=== PATIENT | female | born 1940 | race Caucasian/White ===

== ENCOUNTER 2019-07-28 15:25 | Inpatient (IN) | payer MEDICARE, OTHER ==
[~2019-07-28] VITALS: Ht 157.5 cm; Wt 87.8 kg
--- NOTE | 2019-07-28 15:52 | NUR ---
Xray awaiting Ct C spine results
[2019-07-28] MEDS ORDERED: SODIUM CHLORIDE 0.9% 1,000ML IVBOLUS ONE ×2 (16:00→18:30)
[2019-07-28] MEDS ORDERED: SODIUM CHLORIDE FLUSH 10ML SYR IVF ONE (16:00)
--- NOTE | 2019-07-28 16:20 | NUR ---
ORAL SURGERY PHYSICIAN: PTS GRANDSONGWENDOLYN PH: [phone] STATES HIS GRANDMOTHER LIVES ALONE AND HE WAS CONTACTED BY A NEIGHBOR. HE STATED THAT HE WOULD BE IN LATER AND ALSO THAT HIS SISTER IS TRYING TO LEAVE WORK TO COME IN. THEY ARE BOTH IN [place]
[2019-07-28 16:44] LABS: ALBUMIN 3.8 g/dL (3.4-5.0); ANION GAP 13 mmol/L (5-15); CALCIUM 9.4 mg/dL (8.5-10.1); CHLORIDE 101 mmol/L (98-107)
[2019-07-28 16:50] LABS: BASOPHILS # (AUTO) 0.02 x10^3/uL (0-0.1); BASOPHILS % (AUTO) 0 % (0-1); EOSINOPHILS # (AUTO) 0.08 x10^3/uL (0-0.4); EOSINOPHILS % (AUTO) 1 % (1-7); LYMPHOCYTES # (AUTO) 0.93 x10^3/uL (1-3.4); LYMPHOCYTES % (AUTO) 10 % (22-44); MD NO; MEAN CORPUSCULAR HGB CONC 33.5 g/dL (32.4-35.8); MEAN CORPUSCULAR VOLUME 92.8 fL (80-100); MEAN PLATELET VOLUME 9.1 fL (7.4-10.4); MONOCYTES # (AUTO) 0.64 x10^3/uL (0.2-0.8); MONOCYTES % (AUTO) 7 % (2-9); NEUTROPHILS # (AUTO) 7.75 x10^3/uL (1.8-6.8); NEUTROPHILS % (AUTO) 82 % (42-75); PLATELET COUNT 287 x10^3/uL (130-400); RED BLOOD COUNT 5.61 x10^6/uL (3.82-5.3); RED CELL DISTRIBUTION WIDTH 14.9 % (9.6-15.2)
[2019-07-28 16:52] LABS: ALANINE AMINOTRANSFERASE 66 U/L (12-78); ALKALINE PHOSPHATASE 83 U/L (45-117); CREATINE KINASE, TOTAL 729 U/L (26-192); TOTAL PROTEIN 8.3 g/dL (6.4-8.2); TROPONIN I 0.026 ng/mL (0.000-0.045)
[2019-07-28 16:55] LABS: CULTURE INDICATED? YES; MICROSCOPIC INDICATED
--- NOTE | 2019-07-28 17:02 | NUR ---
PT LAYING ON GURNEY AWAKE & COMFORTABLE, WATCHING TV, NAD, RESPONDS APPROP TO STAFF, PUREWICK IN PLACE FOR COMFORT, NO OTHER NEEDS AT THIS TIME, CALL LIGHT WITHIN REACH.
--- NOTE | 2019-07-28 17:45 | NUR ---
PT TO XR
[2019-07-28] MEDS ORDERED: METFORMIN (17:50)
[2019-07-28] MEDS ORDERED: VALIUM (17:50)
[2019-07-28] MEDS ORDERED: COUMADIN (17:50)
[2019-07-28] MEDS ORDERED: CEFTRIAXONE PMX 1GM/50ML 50 ML IV ONE (18:00)
[2019-07-28] MEDS ORDERED: POTASSIUM CHLORIDE 10% 40 MEQ/30 ML UDC PO ONE (18:00)
[2019-07-28] MEDS ORDERED: CEFTRIAXONE PMX 1GM/50ML 50 ML ONE (18:16)
--- NOTE | 2019-07-28 18:20 | NUR ---
PT RETURNED FROM XR
[2019-07-28] MEDS ORDERED: CEFTRIAXONE PMX 1GM/50ML 50 ML IV SCH (19:00)
[2019-07-28] MEDS ORDERED: ACETAMINOPHEN 325 MG TABLET PO PRN (19:00)
[2019-07-28] MEDS ORDERED: BISACODYL 10 MG SUPP PR PRN (19:00)
[2019-07-28] MEDS ORDERED: POLYETHYLENE GLYCOL 17 GM PACKET PO PRN (19:00)
[2019-07-28] MEDS ORDERED: ONDANSETRON ODT 4 MG PO PRN (19:00)
--- NOTE | 2019-07-28 19:02 | NUR ---
REPORT GIVEN TO TADEO
[2019-07-28 19:22] LABS: INTERNATIONAL NORMALIZED RATIO 3.12 (0.93-1.1); PROTHROMBIN TIME 33.5 Seconds (9.6-11.5)
--- NOTE | 2019-07-28 19:43 | NUR ---
PT RESTING ON GURNEY, IV FLUIDS INFUSING, MONITORS IN PLACE, SIDERAILS UP X2, CALL LIGHT WITHIN REACH. AWAITING ROOM FOR ADMIT
--- NOTE | 2019-07-28 19:50 | NUR ---
NOTED PT'S HR- 115-140'S, ADMIT MD NOTIFIED AND WILL PLACE ORDER
--- NOTE | 2019-07-28 20:26 | NUR ---
ADMIT ( KENNETH), CALLED AND UPDATED PT'S HR-113-120'S, ORDER RECEIVED TO HAVE FLOOR RN CALL MD HERNANDEZ PT ARRIVES TO FLOOR
--- NOTE | 2019-07-28 20:31 | NUR ---
CARRIE RN CALLED AND UNABLE TO COME TO PHONE AT THIS TIME, DIOGENES INFORMED THAT NO IV GTT'S TO BE STARTED AT THIS TIME AND ADMIT (KENNETH) WANTS TO BE CALLED WHEN PT ARRIVES TO FLOOR. DIOGENES STATED SHE WILL NOTIFY CARRIE
[2019-07-28 20:48] VITALS: BP 123/77
[2019-07-28] MEDS: DILTIAZEM 125 MG in SODIUM CHLORIDE 0.9% 100 ML IV SCH (22:09)
[2019-07-28] MEDS: HEPARIN 5,000 UNITS/ML, 1ML SQ SCH (22:10)
[2019-07-28] MEDS: NS + 20MEQ KCL 1,000 ML IV SCH (22:10)
[2019-07-28] MEDS ORDERED: LEVO100V8 PO (23:41)
[2019-07-28] MEDS ORDERED: LEVO100T PO (23:42)
[2019-07-29 00:09] VITALS: BP 128/82
[2019-07-29] MEDS: HEPARIN 5,000 UNITS/ML, 1ML SQ SCH ×3 (05:37→21:44)
[2019-07-29 06:04] LABS: BASOPHILS # (AUTO) 0.03 x10^3/uL (0-0.1); BASOPHILS % (AUTO) 1 % (0-1); EOSINOPHILS # (AUTO) 0.24 x10^3/uL (0-0.4); EOSINOPHILS % (AUTO) 4 % (1-7); LYMPHOCYTES % (AUTO) 12 % (22-44); MD NO; MEAN CORPUSCULAR HEMOGLOBIN 30.7 pg (27.0-34.8); MEAN CORPUSCULAR VOLUME 92.9 fL (80-100); MEAN PLATELET VOLUME 8.9 fL (7.4-10.4); MONOCYTES # (AUTO) 0.51 x10^3/uL (0.2-0.8); MONOCYTES % (AUTO) 8 % (2-9); NEUTROPHILS # (AUTO) 5.14 x10^3/uL (1.8-6.8); NEUTROPHILS % (AUTO) 76 % (42-75); PLATELET COUNT 244 x10^3/uL (130-400); RED BLOOD COUNT 4.93 x10^6/uL (3.82-5.3); RED CELL DISTRIBUTION WIDTH 15.1 % (9.6-15.2)
[2019-07-29 06:16] LABS: ANION GAP 10 mmol/L (5-15); CALCIUM 8.1 mg/dL (8.5-10.1); CHLORIDE 112 mmol/L (98-107)
[2019-07-29 06:22] LABS: CREATINE KINASE, TOTAL 286 U/L (26-192); CREATININE 0.92 mg/dL (0.55-1.02); TROPONIN I 0.045 ng/mL (0.000-0.045)
[2019-07-29 08:00] VITALS: BP 134/85
[2019-07-29] MEDS: NS + 20MEQ KCL 1,000 ML IV SCH ×2 (08:53→21:44)
[2019-07-29] MEDS: SENNA/DOCUSATE TABLET PO SCH (08:53)
[2019-07-29 14:00] VITALS: BP 129/85
[2019-07-29] MEDS ORDERED: VANCOMYCIN PER PHARMACY MC PRN (17:00)
[2019-07-29] MEDS ORDERED: POTASSIUM CHLORIDE 20 MEQ TAB.ER.PRT PO ONE (17:00)
[2019-07-29] MEDS ORDERED: VANCOMYCIN PMX 1GM/200ML 200 ML IV ONE (17:00)
[2019-07-29] MEDS ORDERED: PHARMACOKINETIC MONITORING MC PRN (17:30)
[2019-07-29 19:19] VITALS: BP 129/73
[2019-07-29] MEDS: AMPICILLIN/SULBACTAM 3 GM in SODIUM CHLORIDE 0.9% 100 ML IV SCH (19:42)
[2019-07-29] MEDS: DILTIAZEM 125 MG in SODIUM CHLORIDE 0.9% 100 ML IV SCH (19:43)
[2019-07-29] MEDS: VANCOMYCIN 1,300 MG in SODIUM CHLORIDE 0.9% 250 ML IV SCH (21:44)
[2019-07-30 01:13] VITALS: BP 128/88
[2019-07-30] MEDS: AMPICILLIN/SULBACTAM 3 GM in SODIUM CHLORIDE 0.9% 100 ML IV SCH ×3 (02:02→16:30)
[2019-07-30] MEDS ORDERED: HALOPERIDOL 5 MG/ML IM ONE (03:00)
[2019-07-30 03:51] LABS: BASOPHILS # (AUTO) 0.05 x10^3/uL (0-0.1); BASOPHILS % (AUTO) 1 % (0-1); EOSINOPHILS # (AUTO) 0.32 x10^3/uL (0-0.4); EOSINOPHILS % (AUTO) 5 % (1-7); LYMPHOCYTES % (AUTO) 11 % (22-44); MD NO; MEAN CORPUSCULAR HEMOGLOBIN 30.7 pg (27.0-34.8); MEAN CORPUSCULAR HGB CONC 32.6 g/dL (32.4-35.8); MEAN CORPUSCULAR VOLUME 94.2 fL (80-100); MEAN PLATELET VOLUME 8.7 fL (7.4-10.4); MONOCYTES # (AUTO) 0.47 x10^3/uL (0.2-0.8); MONOCYTES % (AUTO) 7 % (2-9); NEUTROPHILS # (AUTO) 5.38 x10^3/uL (1.8-6.8); NEUTROPHILS % (AUTO) 77 % (42-75); PLATELET COUNT 243 x10^3/uL (130-400); RED BLOOD COUNT 4.75 x10^6/uL (3.82-5.3); RED CELL DISTRIBUTION WIDTH 15.1 % (9.6-15.2)
[2019-07-30 04:02] LABS: ALANINE AMINOTRANSFERASE 45 U/L (12-78); ALBUMIN 2.8 g/dL (3.4-5.0); ANION GAP 8 mmol/L (5-15); CHLORIDE 112 mmol/L (98-107); CREATININE 1.05 mg/dL (0.55-1.02)
[2019-07-30 04:04] LABS: ALKALINE PHOSPHATASE 56 U/L (45-117); BILIRUBIN,TOTAL 0.9 mg/dL (0.2-1.0); TOTAL PROTEIN 6.3 g/dL (6.4-8.2)
[2019-07-30] MEDS: HEPARIN 5,000 UNITS/ML, 1ML SQ SCH ×2 (05:21→15:18)
[2019-07-30] MEDS: SENNA/DOCUSATE TABLET PO SCH (08:04)
[2019-07-30 08:37] VITALS: BP 132/89
[2019-07-30] MEDS: DILTIAZEM 125 MG in SODIUM CHLORIDE 0.9% 100 ML IV SCH (10:18)
[2019-07-30 13:48] VITALS: BP 122/71
[2019-07-30] MEDS: NS + 20MEQ KCL 1,000 ML IV SCH (16:30)
[2019-07-30] MEDS: DILTIAZEM 60 MG TABLET PO SCH (18:42)
[2019-07-30] MEDS ORDERED: MAGNESIUM SULFATE PMX 2GM/50ML 50 ML IV ONE (19:00)
[2019-07-30 19:03] VITALS: BP 152/79
[2019-07-30 19:03] LABS: INTERNATIONAL NORMALIZED RATIO 1.51 (0.93-1.1); PROTHROMBIN TIME 16.1 Seconds (9.6-11.5)
[2019-07-30] MEDS ORDERED: HOLD COUMADIN MC PRN (19:30)
[2019-07-30] MEDS: VANCOMYCIN 1,300 MG in SODIUM CHLORIDE 0.9% 250 ML IV SCH (21:56)
[2019-07-30] MEDS ORDERED: DILTIAZEM 5 MG/ML, 5ML IVPush ONE (22:00)
[2019-07-30] MEDS ORDERED: LORazepam 2 MG/ML, 1ML IVPush PRN (22:00)
[2019-07-30] MEDS ORDERED: LORazepam 2 MG/ML, 1ML IVPush ONE (23:00)
[2019-07-31] MEDS: DILTIAZEM 60 MG TABLET PO SCH ×5 (00:45→23:20)
[2019-07-31 00:54] VITALS: BP 148/82
[2019-07-31] MEDS ORDERED: ZIPRASIDONE 20 MG INJ IM ONE (01:00)
[2019-07-31 05:40] LABS: BASOPHILS # (AUTO) 0.02 x10^3/uL (0-0.1); BASOPHILS % (AUTO) 0 % (0-1); EOSINOPHILS # (AUTO) 0.35 x10^3/uL (0-0.4); EOSINOPHILS % (AUTO) 5 % (1-7); LYMPHOCYTES % (AUTO) 14 % (22-44); MD NO; MEAN CORPUSCULAR HEMOGLOBIN 31.2 pg (27.0-34.8); MEAN CORPUSCULAR HGB CONC 33.1 g/dL (32.4-35.8); MEAN CORPUSCULAR VOLUME 94.4 fL (80-100); MEAN PLATELET VOLUME 8.4 fL (7.4-10.4); MONOCYTES # (AUTO) 0.68 x10^3/uL (0.2-0.8); MONOCYTES % (AUTO) 9 % (2-9); NEUTROPHILS # (AUTO) 5.24 x10^3/uL (1.8-6.8); NEUTROPHILS % (AUTO) 72 % (42-75); PLATELET COUNT 238 x10^3/uL (130-400); RED BLOOD COUNT 5.16 x10^6/uL (3.82-5.3); RED CELL DISTRIBUTION WIDTH 15.4 % (9.6-15.2)
[2019-07-31 05:53] LABS: INTERNATIONAL NORMALIZED RATIO 1.4 (0.93-1.1); PROTHROMBIN TIME 14.9 Seconds (9.6-11.5)
[2019-07-31 05:54] LABS: ANION GAP 8 mmol/L (5-15); CALCIUM 8.9 mg/dL (8.5-10.1); CHLORIDE 109 mmol/L (98-107)
[2019-07-31 05:58] LABS: CREATININE 0.78 mg/dL (0.55-1.02)
[2019-07-31 06:40] VITALS: BP 161/90
[2019-07-31] MEDS: SENNA/DOCUSATE TABLET PO SCH ×2 (09:00→11:55)
[2019-07-31] MEDS: MAGNESIUM OXIDE 400 MG TABLET PO SCH ×2 (09:00→11:55)
[2019-07-31 09:46] VITALS: BP 130/84
[2019-07-31] MEDS: AMPICILLIN/SULBACTAM 3 GM in SODIUM CHLORIDE 0.9% 100 ML IV SCH ×3 (11:00→23:20)
[2019-07-31 12:15] VITALS: BP 132/84
[2019-07-31] MEDS ORDERED: WARFARIN 5 MG TABLET PO-COUM ONE (18:00)
[2019-07-31 20:29] VITALS: BP 130/80
[2019-07-31] MEDS: VANCOMYCIN 1,300 MG in SODIUM CHLORIDE 0.9% 250 ML IV SCH (21:30)
[2019-07-31] MEDS: QUETIAPINE 25MG TABLET PO SCH (22:02)
[2019-08-01 02:28] VITALS: BP 143/81
[2019-08-01 05:47] LABS: BASOPHILS # (AUTO) 0.02 x10^3/uL (0-0.1); BASOPHILS % (AUTO) 0 % (0-1); EOSINOPHILS # (AUTO) 0.34 x10^3/uL (0-0.4); EOSINOPHILS % (AUTO) 5 % (1-7); LYMPHOCYTES # (AUTO) 1.27 x10^3/uL (1-3.4); LYMPHOCYTES % (AUTO) 18 % (22-44); MD NO; MEAN CORPUSCULAR HEMOGLOBIN 31.2 pg (27.0-34.8); MEAN CORPUSCULAR HGB CONC 33.2 g/dL (32.4-35.8); MEAN PLATELET VOLUME 8.9 fL (7.4-10.4); MONOCYTES # (AUTO) 0.64 x10^3/uL (0.2-0.8); MONOCYTES % (AUTO) 9 % (2-9); NEUTROPHILS # (AUTO) 4.84 x10^3/uL (1.8-6.8); NEUTROPHILS % (AUTO) 68 % (42-75); PLATELET COUNT 226 x10^3/uL (130-400); RED BLOOD COUNT 4.94 x10^6/uL (3.82-5.3); RED CELL DISTRIBUTION WIDTH 15.1 % (9.6-15.2)
[2019-08-01] MEDS: AMPICILLIN/SULBACTAM 3 GM in SODIUM CHLORIDE 0.9% 100 ML IV SCH (05:55)
[2019-08-01] MEDS: DILTIAZEM 60 MG TABLET PO SCH ×5 (05:56→17:55)
[2019-08-01 05:59] LABS: ANION GAP 6 mmol/L (5-15); CALCIUM 8.4 mg/dL (8.5-10.1); CHLORIDE 108 mmol/L (98-107)
[2019-08-01 06:26] LABS: INTERNATIONAL NORMALIZED RATIO 1.25 (0.93-1.1); PROTHROMBIN TIME 13.3 Seconds (9.6-11.5)
[2019-08-01] MEDS: MAGNESIUM OXIDE 400 MG TABLET PO SCH ×2 (09:00→12:35)
[2019-08-01] MEDS: SENNA/DOCUSATE TABLET PO SCH ×2 (09:00→12:35)
[2019-08-01 09:06] VITALS: BP 150/87
[2019-08-01] MEDS ORDERED: POTASSIUM CHLORIDE 40 MEQ in SODIUM CHLORIDE 0.9% 500 ML IV ONE (11:00)
[2019-08-01] MEDS: LEVOFLOXACIN/PMX 750MG/150ML 150 ML IV SCH (11:21)
--- NOTE | 2019-08-01 12:14 | NUR ---
REC: Home; regular diet with chopped meat and thin liquids Addendum: 08/01/19 at 1214 by Leonie JAEGER Amended: Links added.
[2019-08-01 12:34] VITALS: BP 104/71
[2019-08-01] MEDS ORDERED: WARFARIN 3 MG TABLET PO-COUM ONE (18:00)
[2019-08-01 18:14] VITALS: BP 112/80
[2019-08-01] MEDS: METOPROLOL TARTRATE 25 MG TAB PO SCH (18:23)
[2019-08-01 21:13] VITALS: BP 126/88
[2019-08-01] MEDS: QUETIAPINE 25MG TABLET PO SCH (21:13)
[2019-08-01] MEDS: VANCOMYCIN 1,300 MG in SODIUM CHLORIDE 0.9% 250 ML IV SCH (21:13)
[2019-08-02 01:42] VITALS: BP 141/85
[2019-08-02] MEDS: DILTIAZEM 60 MG TABLET PO SCH ×4 (01:43→20:14)
[2019-08-02 05:45] LABS: BASOPHILS # (AUTO) 0.02 x10^3/uL (0-0.1); BASOPHILS % (AUTO) 0 % (0-1); EOSINOPHILS % (AUTO) 5 % (1-7); LYMPHOCYTES # (AUTO) 1.23 x10^3/uL (1-3.4); LYMPHOCYTES % (AUTO) 16 % (22-44); MD NO; MEAN CORPUSCULAR HEMOGLOBIN 30.9 pg (27.0-34.8); MEAN CORPUSCULAR HGB CONC 32.9 g/dL (32.4-35.8); MEAN CORPUSCULAR VOLUME 93.8 fL (80-100); MEAN PLATELET VOLUME 9.2 fL (7.4-10.4); MONOCYTES # (AUTO) 0.68 x10^3/uL (0.2-0.8); MONOCYTES % (AUTO) 9 % (2-9); NEUTROPHILS # (AUTO) 5.45 x10^3/uL (1.8-6.8); NEUTROPHILS % (AUTO) 70 % (42-75); PLATELET COUNT 227 x10^3/uL (130-400); RED CELL DISTRIBUTION WIDTH 15.2 % (9.6-15.2)
[2019-08-02 05:52] LABS: INTERNATIONAL NORMALIZED RATIO 1.57 (0.93-1.1); PROTHROMBIN TIME 16.7 Seconds (9.6-11.5)
[2019-08-02 05:55] LABS: ANION GAP 8 mmol/L (5-15); CALCIUM 8.4 mg/dL (8.5-10.1); CHLORIDE 107 mmol/L (98-107)
[2019-08-02] MEDS: METOPROLOL TARTRATE 25 MG TAB PO SCH ×2 (06:00→17:19)
[2019-08-02 06:02] VITALS: BP 144/93
[2019-08-02] MEDS: MAGNESIUM OXIDE 400 MG TABLET PO SCH (08:51)
[2019-08-02] MEDS: SENNA/DOCUSATE TABLET PO SCH (08:51)
[2019-08-02] MEDS: LEVOFLOXACIN/PMX 750MG/150ML 150 ML IV SCH (11:01)
[2019-08-02 13:18] VITALS: BP 104/71
[2019-08-02] MEDS ORDERED: WARFARIN 5 MG TABLET PO-COUM ONE (18:00)
[2019-08-02 19:12] VITALS: BP 129/73
[2019-08-02] MEDS: QUETIAPINE 25MG TABLET PO SCH (20:09)
[2019-08-02 20:13] VITALS: BP 113/80
[2019-08-02] MEDS: DOXYCYCLINE 100MG CAP PO SCH (20:14)
[2019-08-03 00:46] VITALS: BP 136/79
[2019-08-03] MEDS: DILTIAZEM 60 MG TABLET PO SCH ×4 (03:00→19:56)
[2019-08-03 04:41] LABS: BASOPHILS # (AUTO) 0.06 x10^3/uL (0-0.1); BASOPHILS % (AUTO) 1 % (0-1); EOSINOPHILS # (AUTO) 0.36 x10^3/uL (0-0.4); EOSINOPHILS % (AUTO) 4 % (1-7); LYMPHOCYTES # (AUTO) 1.22 x10^3/uL (1-3.4); LYMPHOCYTES % (AUTO) 14 % (22-44); MD NO; MEAN CORPUSCULAR HGB CONC 33.1 g/dL (32.4-35.8); MEAN CORPUSCULAR VOLUME 93.7 fL (80-100); MONOCYTES # (AUTO) 0.61 x10^3/uL (0.2-0.8); MONOCYTES % (AUTO) 7 % (2-9); NEUTROPHILS # (AUTO) 6.22 x10^3/uL (1.8-6.8); NEUTROPHILS % (AUTO) 73 % (42-75); PLATELET COUNT 233 x10^3/uL (130-400); RED BLOOD COUNT 4.81 x10^6/uL (3.82-5.3); RED CELL DISTRIBUTION WIDTH 15.4 % (9.6-15.2)
[2019-08-03 04:52] LABS: ANION GAP 8 mmol/L (5-15); CALCIUM 8.3 mg/dL (8.5-10.1); CHLORIDE 107 mmol/L (98-107); CREATININE 1.28 mg/dL (0.55-1.02)
[2019-08-03 06:05] VITALS: BP 136/80
[2019-08-03] MEDS: METOPROLOL TARTRATE 25 MG TAB PO SCH ×2 (06:06→17:40)
[2019-08-03 06:08] VITALS: BP 136/82
[2019-08-03] MEDS: SENNA/DOCUSATE TABLET PO SCH (08:36)
[2019-08-03] MEDS: DOXYCYCLINE 100MG CAP PO SCH ×2 (08:36→19:56)
[2019-08-03 09:48] LABS: INTERNATIONAL NORMALIZED RATIO 1.44 (0.93-1.1); PROTHROMBIN TIME 15.3 Seconds (9.6-11.5)
[2019-08-03] MEDS: MAGNESIUM OXIDE 400 MG TABLET PO SCH (11:10)
[2019-08-03 14:10] VITALS: BP 159/82
[2019-08-03] MEDS ORDERED: WARFARIN 7.5 MG TABLET PO-COUM ONE (18:00)
[2019-08-03 18:53] VITALS: BP 186/94
[2019-08-03] MEDS: QUETIAPINE 25MG TABLET PO SCH (19:56)
[2019-08-03 20:00] VITALS: BP 169/71
[2019-08-04] VITALS (9 sets, daily range): BP systolic 103–150; BP diastolic 63–89
[2019-08-04] MEDS: DILTIAZEM 60 MG TABLET PO SCH ×4 (03:10→20:57)
[2019-08-04 05:55] LABS: BASOPHILS # (AUTO) 0.03 x10^3/uL (0-0.1); BASOPHILS % (AUTO) 1 % (0-1); EOSINOPHILS % (AUTO) 6 % (1-7); LYMPHOCYTES # (AUTO) 1.02 x10^3/uL (1-3.4); LYMPHOCYTES % (AUTO) 15 % (22-44); MD NO; MEAN CORPUSCULAR VOLUME 94.1 fL (80-100); MEAN PLATELET VOLUME 9.1 fL (7.4-10.4); MONOCYTES # (AUTO) 0.71 x10^3/uL (0.2-0.8); MONOCYTES % (AUTO) 10 % (2-9); NEUTROPHILS # (AUTO) 4.69 x10^3/uL (1.8-6.8); NEUTROPHILS % (AUTO) 68 % (42-75); PLATELET COUNT 224 x10^3/uL (130-400); RED BLOOD COUNT 4.82 x10^6/uL (3.82-5.3); RED CELL DISTRIBUTION WIDTH 15.5 % (9.6-15.2)
[2019-08-04 05:57] LABS: INTERNATIONAL NORMALIZED RATIO 1.83 (0.93-1.1); PROTHROMBIN TIME 19.5 Seconds (9.6-11.5)
[2019-08-04] MEDS: METOPROLOL TARTRATE 25 MG TAB PO SCH ×2 (06:00→17:25)
[2019-08-04 06:03] LABS: ANION GAP 8 mmol/L (5-15); CALCIUM 8.6 mg/dL (8.5-10.1); CHLORIDE 107 mmol/L (98-107); CREATININE 0.94 mg/dL (0.55-1.02)
[2019-08-04] MEDS: DOXYCYCLINE 100MG CAP PO SCH ×2 (09:23→20:57)
[2019-08-04] MEDS: SENNA/DOCUSATE TABLET PO SCH (09:23)
[2019-08-04] MEDS: MAGNESIUM OXIDE 400 MG TABLET PO SCH (11:07)
[2019-08-04] MEDS ORDERED: SODIUM CHLORIDE 0.9%, 500ML IVBOLUS ONE (12:30)
[2019-08-04] MEDS ORDERED: WARFARIN 7.5 MG TABLET PO-COUM ONE (18:00)
[2019-08-04] MEDS: QUETIAPINE 25MG TABLET PO SCH (20:57)
[2019-08-05] VITALS (10 sets, daily range): BP systolic 78–135; BP diastolic 51–92
[2019-08-05] MEDS: DILTIAZEM 60 MG TABLET PO SCH ×4 (03:08→21:15)
[2019-08-05 05:02] LABS: BASOPHILS # (AUTO) 0.04 x10^3/uL (0-0.1); BASOPHILS % (AUTO) 1 % (0-1); EOSINOPHILS # (AUTO) 0.48 x10^3/uL (0-0.4); EOSINOPHILS % (AUTO) 6 % (1-7); LYMPHOCYTES # (AUTO) 1.31 x10^3/uL (1-3.4); LYMPHOCYTES % (AUTO) 17 % (22-44); MD NO; MEAN CORPUSCULAR HEMOGLOBIN 30.9 pg (27.0-34.8); MEAN CORPUSCULAR HGB CONC 32.5 g/dL (32.4-35.8); MEAN CORPUSCULAR VOLUME 95.1 fL (80-100); MEAN PLATELET VOLUME 9.2 fL (7.4-10.4); MONOCYTES # (AUTO) 0.84 x10^3/uL (0.2-0.8); MONOCYTES % (AUTO) 11 % (2-9); NEUTROPHILS # (AUTO) 4.94 x10^3/uL (1.8-6.8); NEUTROPHILS % (AUTO) 65 % (42-75); PLATELET COUNT 211 x10^3/uL (130-400); RED BLOOD COUNT 4.59 x10^6/uL (3.82-5.3); RED CELL DISTRIBUTION WIDTH 15.5 % (9.6-15.2)
[2019-08-05 05:12] LABS: INTERNATIONAL NORMALIZED RATIO 2.93 (0.93-1.1); PROTHROMBIN TIME 31.4 Seconds (9.6-11.5)
[2019-08-05 05:18] LABS: ANION GAP 4 mmol/L (5-15); CALCIUM 8.2 mg/dL (8.5-10.1); CHLORIDE 108 mmol/L (98-107)
[2019-08-05 05:20] LABS: CREATININE 1.21 mg/dL (0.55-1.02)
[2019-08-05] MEDS: METOPROLOL TARTRATE 25 MG TAB PO SCH ×2 (05:41→17:32)
[2019-08-05] MEDS: SENNA/DOCUSATE TABLET PO SCH (08:10)
[2019-08-05] MEDS: DOXYCYCLINE 100MG CAP PO SCH ×2 (08:10→21:15)
[2019-08-05] MEDS: MAGNESIUM OXIDE 400 MG TABLET PO SCH (11:20)
[2019-08-05] MEDS ORDERED: VALS1TAB26 PO (16:51)
[2019-08-05] MEDS ORDERED: METF850T10 PO (16:51)
[2019-08-05] MEDS ORDERED: WARF-36 PO (16:51)
[2019-08-05] MEDS ORDERED: WARFARIN 2.5 MG TABLET PO-COUM ONE (18:00)
[2019-08-05] MEDS: QUETIAPINE 25MG TABLET PO SCH (21:15)
[2019-08-06] VITALS (8 sets, daily range): BP systolic 102–152; BP diastolic 49–81
[2019-08-06] MEDS: DILTIAZEM 60 MG TABLET PO SCH ×4 (03:18→21:19)
[2019-08-06 05:52] LABS: BASOPHILS # (AUTO) 0.05 x10^3/uL (0-0.1); BASOPHILS % (AUTO) 1 % (0-1); EOSINOPHILS % (AUTO) 6 % (1-7); LYMPHOCYTES # (AUTO) 1.15 x10^3/uL (1-3.4); LYMPHOCYTES % (AUTO) 17 % (22-44); MD NO; MEAN CORPUSCULAR HEMOGLOBIN 31.3 pg (27.0-34.8); MEAN CORPUSCULAR HGB CONC 33.2 g/dL (32.4-35.8); MEAN CORPUSCULAR VOLUME 94.1 fL (80-100); MEAN PLATELET VOLUME 9.1 fL (7.4-10.4); MONOCYTES # (AUTO) 0.73 x10^3/uL (0.2-0.8); MONOCYTES % (AUTO) 11 % (2-9); NEUTROPHILS # (AUTO) 4.44 x10^3/uL (1.8-6.8); NEUTROPHILS % (AUTO) 66 % (42-75); PLATELET COUNT 211 x10^3/uL (130-400); RED BLOOD COUNT 4.63 x10^6/uL (3.82-5.3); RED CELL DISTRIBUTION WIDTH 15.3 % (9.6-15.2)
[2019-08-06] MEDS: METOPROLOL TARTRATE 25 MG TAB PO SCH ×2 (05:52→18:16)
[2019-08-06 05:55] LABS: INTERNATIONAL NORMALIZED RATIO 3.06 (0.93-1.1); PROTHROMBIN TIME 32.8 Seconds (9.6-11.5)
[2019-08-06 06:05] LABS: ANION GAP 6 mmol/L (5-15); CALCIUM 8.4 mg/dL (8.5-10.1); CHLORIDE 110 mmol/L (98-107); CREATININE 1.02 mg/dL (0.55-1.02)
[2019-08-06] MEDS: DOXYCYCLINE 100MG CAP PO SCH (10:32)
[2019-08-06] MEDS: POTASSIUM CHLORIDE 20 MEQ TAB.ER.PRT PO SCH ×2 (10:32→16:40)
[2019-08-06] MEDS: SENNA/DOCUSATE TABLET PO SCH (10:32)
[2019-08-06] MEDS: MAGNESIUM OXIDE 400 MG TABLET PO SCH (10:32)
[2019-08-06] MEDS ORDERED: WARFARIN 2.5 MG TABLET PO-COUM ONE (18:00)
[2019-08-06] MEDS: QUETIAPINE 25MG TABLET PO SCH (21:19)
[2019-08-07 01:20] VITALS: BP 146/80
[2019-08-07] MEDS: DILTIAZEM 60 MG TABLET PO SCH ×2 (03:00→07:49)
[2019-08-07 05:30] VITALS: BP 157/73
[2019-08-07] MEDS: METOPROLOL TARTRATE 25 MG TAB PO SCH (05:35)
[2019-08-07] MEDS ORDERED: LEVOTHYROXINE 100 MCG TABLET PO SCH (06:00)
[2019-08-07 06:41] LABS: INTERNATIONAL NORMALIZED RATIO 2.86 (0.93-1.1); PROTHROMBIN TIME 30.6 Seconds (9.6-11.5)
[2019-08-07 06:49] LABS: ANION GAP 5 mmol/L (5-15); CALCIUM 8.7 mg/dL (8.5-10.1); CHLORIDE 111 mmol/L (98-107)
[2019-08-07 06:50] LABS: CREATININE 0.84 mg/dL (0.55-1.02)
[2019-08-07] MEDS ORDERED: POTASSIUM CHLORIDE 20 MEQ in SODIUM CHLORIDE 0.9% 250 ML IV ONE (07:30)
[2019-08-07] MEDS: SENNA/DOCUSATE TABLET PO SCH (07:49)
[2019-08-07] MEDS: POTASSIUM CHLORIDE 20 MEQ TAB.ER.PRT PO SCH (07:49)
[2019-08-07 08:04] VITALS: BP 128/81
[2019-08-07] MEDS: MAGNESIUM OXIDE 400 MG TABLET PO SCH (11:20)
[2019-08-07] MEDS ORDERED: DILT60TA27 PO (12:05)
[2019-08-07] MEDS ORDERED: METO25TA35 PO (12:05)
[2019-08-07 13:00] VITALS: BP 113/72
[2019-08-07] MEDS ORDERED: WARFARIN 2.5 MG TABLET PO-COUM ONE (18:00)
[2019-09-18] MEDS ORDERED: DOCU100C33 PO (15:53)
[2019-09-18] MEDS ORDERED: DIGO125T85 PO (15:53)
[2019-09-18] MEDS ORDERED: METO25TA35 PO (15:53)
[2019-09-18] MEDS ORDERED: HALO5TAB5 PO (15:53)
[2019-09-18] MEDS ORDERED: QUET25TA7 PO (15:53)
[2019-09-18] MEDS ORDERED: INSU100I11 SQ-INSULIN (15:53)
[2019-09-18] MEDS ORDERED: ACET325T26 PO (15:53)
== END 2019-08-07 15:02 | DRG 91 ==
LOC: ED 19:47 → EDIP 19:48 → 4EST 20:57
PROVIDERS: ADMIT Internal Medicine; ATTEND Family Medicine
PROC: 0T9B70Z Drainage of Bladder with Drainage Device, Via Natural or Artificial Opening (ICD-10-PCS; principal; 2019-07-28)
DX: G92 Toxic encephalopathy (principal); N17.0 Acute kidney failure with tubular necrosis; N39.0 Urinary tract infection, site not specified; I48.20 Chronic atrial fibrillation, unspecified; D68.69 Other thrombophilia; L03.115 Cellulitis of right lower limb; Z88.2 Allergy status to sulfonamides; B96.20 Unspecified Escherichia coli [E. coli] as the cause of diseases classified elsewhere; D75.1 Secondary polycythemia; E03.9 Hypothyroidism, unspecified; E11.22 Type 2 diabetes mellitus with diabetic chronic kidney disease; E87.6 Hypokalemia; F03.90 Unspecified dementia, unspecified severity, without behavioral disturbance, psychotic disturbance, mood disturbance, and anxiety; I12.9 Hypertensive chronic kidney disease with stage 1 through stage 4 chronic kidney disease, or unspecified chronic kidney disease; N18.3 Chronic kidney disease, stage 3 (moderate); Z79.01 Long term (current) use of anticoagulants; Z79.84 Long term (current) use of oral hypoglycemic drugs; Z82.3 Family history of stroke; Z85.3 Personal history of malignant neoplasm of breast; Z86.73 Personal history of transient ischemic attack (TIA), and cerebral infarction without residual deficits; Z87.891 Personal history of nicotine dependence; Z92.3 Personal history of irradiation; W18.39XA Other fall on same level, initial encounter; Y93.89 Activity, other specified; Y92.89 Other specified places as the place of occurrence of the external cause; Y99.8 Other external cause status
CPT/HCPCS: 36415; 70450; 71045; 72125; 72190; 80048; 80053; 80173; 80202; 81001; 82550; 83605; 83735; 84100; 84145; 84484; 85025; 85610; 86140; 87040; 87077; 87086; 87186; 93005; 99285; G0378; J0295; J0696; J1644; J1956; J3370; J3480; J3486; J1630; J2060; J3475; J7030; J7040; J7050

== ENCOUNTER 2020-02-19 11:53 | Emergency (ER) | payer MEDICARE ==
[~2020-02-19] VITALS: Ht 154.9 cm; Wt 80.0 kg
[~2020-02-19 11:53] MED LIST: ACET325T26 PO; AMIO200T42 PO; CEPH-376 PO; COUMADIN; DIGO125T85 PO; DILT60TA27 PO; DOCU100C33 PO; HALO5TAB5 PO; INSU100I11 SQ-INSULIN; Initiate Coumadin Protocol MC; LEVO100T PO; LEVO100V8 PO; LEVO112T2 PO; LISI-170 PO; MAGN400T26 PO; METF850T10 PO; METFORMIN; METO25TA35 PO; QUET25TA7 PO; QUET50TA PO; VALIUM; VALS160T3 PO; VALS1TAB26 PO; VALS80TA30 PO; WARF-36 PO; WARF3TAB52 PO
--- NOTE | 2020-02-19 12:14 | NUR ---
PT BIB [facility] YESTERDAY. PT STATES SHE HAS BACK PAIN. DID NOT HIT HEAD, NO LOC. NO OTHER INJURIES. LABS DONE AT OTHER FACILITY, INR>7. PT HX OF AFIB, WARFARIN. DENIES CP, NO ACTIVE BLEEDING. SLIGHT WET COUHGH. NO SOB
--- NOTE | 2020-02-19 12:31 | NUR ---
PT BACK FROM IMAGING. MORTGAGE SPECIALIST IN PLACE.
--- NOTE | 2020-02-19 12:45 | NUR ---
ASSITED PT TO [facility] W MAX ASSIST. PT UNSTEADY. PT VOIDED. NOW OFF TO XR
[2020-02-19 12:54] LABS: BASOPHILS # (AUTO) 0.02 x10^3/uL (0-0.1); BASOPHILS % (AUTO) 0 % (0-1); EOSINOPHILS # (AUTO) 0.37 x10^3/uL (0-0.4); EOSINOPHILS % (AUTO) 7 % (1-7); LYMPHOCYTES # (AUTO) 0.78 x10^3/uL (1-3.4); LYMPHOCYTES % (AUTO) 14 % (22-44); MD NO; MEAN CORPUSCULAR HEMOGLOBIN 30.4 pg (27.0-34.8); MEAN CORPUSCULAR HGB CONC 32.3 g/dL (32.4-35.8); MONOCYTES # (AUTO) 0.58 x10^3/uL (0.2-0.8); MONOCYTES % (AUTO) 11 % (2-9); NEUTROPHILS % (AUTO) 68 % (42-75); PLATELET COUNT 280 x10^3/uL (130-400); RED BLOOD COUNT 4.11 x10^6/uL (3.82-5.3); RED CELL DISTRIBUTION WIDTH 15.4 % (9.6-15.2)
[2020-02-19 12:59] LABS: ALBUMIN 3.3 g/dL (3.4-5.0); ANION GAP 5 mmol/L (5-15); CALCIUM 8.6 mg/dL (8.5-10.1); CHLORIDE 108 mmol/L (98-107); CREATININE 1.17 mg/dL (0.55-1.02)
[2020-02-19 13:51] LABS: INTERNATIONAL NORMALIZED RATIO 8.77 (0.93-1.1)
[2020-02-19 14:21] LABS: PROTHROMBIN TIME 92.3 Seconds (9.6-11.5)
--- NOTE | 2020-02-19 14:36 | NUR ---
[employer] ARRANGED FOR 1600
--- NOTE | 2020-02-19 14:39 | NUR ---
RN SPOKE W IVORY AVILA DISCUSSING DC INSTRUCTIONS TO HOLD COUMADIN FOR 3-4 DAYS.
--- NOTE | 2020-02-19 16:10 | NUR ---
PT DRESSED, [facility] HERE FOR DC TRANSPORTATION
--- NOTE | 2020-02-19 16:12 | NUR ---
Patient/Caregiver given discharge instructions and they have confirmed that they understand the instructions.
[2020-02-19 16:14] VITALS: BP 145/80
== END 2020-02-19 16:14 | disposition home or self-care (01) ==
LOC: ED 13:50
DX: G89.11 Acute pain due to trauma (principal); M54.5 Low back pain; J34.1 Cyst and mucocele of nose and nasal sinus; G31.1 Senile degeneration of brain, not elsewhere classified; M54.2 Cervicalgia; I45.2 Bifascicular block; I10 Essential (primary) hypertension; E11.9 Type 2 diabetes mellitus without complications; I25.10 Atherosclerotic heart disease of native coronary artery without angina pectoris; I48.91 Unspecified atrial fibrillation; Z87.891 Personal history of nicotine dependence; Z79.01 Long term (current) use of anticoagulants; W19.XXXA Unspecified fall, initial encounter; Y93.89 Activity, other specified; Y92.098 Other place in other non-institutional residence as the place of occurrence of the external cause; Y99.8 Other external cause status
CPT/HCPCS: 36415; 70450; 72110; 80048; 82040; 85025; 85610; 85730; 93005; 99285

== ENCOUNTER 2020-02-21 13:38 | Emergency (ER) | payer MEDICARE ==
[~2020-02-21] VITALS: Ht 154.9 cm; Wt 72.7 kg
--- NOTE | 2020-02-21 14:36 | NUR ---
PT RETURNED FROM CT
[2020-02-21 15:07] VITALS: BP 162/74
[2020-02-21 16:38] LABS: INTERNATIONAL NORMALIZED RATIO 4.43 (0.93-1.1); PROTHROMBIN TIME 46.3 Seconds (9.6-11.5)
--- NOTE | 2020-02-21 16:42 | NUR ---
Transport home set up for patient, Ambulance ride set at [phone]
== END 2020-02-21 17:42 | disposition home or self-care (01) ==
LOC: ED 14:19
DX: S00.83XA Contusion of other part of head, initial encounter (principal); S09.90XA Unspecified injury of head, initial encounter; R00.0 Tachycardia, unspecified; Z79.01 Long term (current) use of anticoagulants; I11.0 Hypertensive heart disease with heart failure; E11.9 Type 2 diabetes mellitus without complications; I48.91 Unspecified atrial fibrillation; Z87.891 Personal history of nicotine dependence; W01.0XXA Fall on same level from slipping, tripping and stumbling without subsequent striking against object, initial encounter; Y93.89 Activity, other specified; Y92.009 Unspecified place in unspecified non-institutional (private) residence as the place of occurrence of the external cause; Y99.8 Other external cause status
CPT/HCPCS: 36415; 70450; 85610; 93005; 99285

== ENCOUNTER 2020-04-02 17:16 | Inpatient (IN) | payer MEDICARE ==
[~2020-04-02] VITALS: Ht 162.6 cm; Wt 75.6 kg
--- NOTE | 2020-04-02 17:38 | NUR ---
SONIDO BRITO FROM [facility] WITH CO BLE OPEN WOUNDS. WOUNDS TENDER W AREAS OF BLACK TISSUE. PT STATES THAT WOUNDS HAVE BEEN THERE "FOR ONE WEEK". + PURULENT DISCHARGE. PT DENIES FEVER. PAIN MILD. BP/SPO2 MONTIOR IN PLACE. VSS.
[2020-04-02] MEDS ORDERED: CLINDAMYCIN PMX 600MG/50ML 50 ML ONE (18:28)
[2020-04-02] MEDS ORDERED: VANCOMYCIN PER PHARMACY MC ONE (18:30)
[2020-04-02] MEDS ORDERED: SODIUM CHLORIDE FLUSH 10ML SYR IVF ONE (18:30)
[2020-04-02] MEDS ORDERED: CLINDAMYCIN PMX 600MG/50ML 50 ML IV ONE (18:30)
[2020-04-02] MEDS ORDERED: VANCOMYCIN 2,000 MG in SODIUM CHLORIDE 0.9% 500 ML IV ONE (18:30)
[2020-04-02 18:33] LABS: BASOPHILS % (AUTO) 1 % (0-1); EOSINOPHILS % (AUTO) 2 % (1-7); LYMPHOCYTES % (AUTO) 22 % (22-44); MEAN CORPUSCULAR HEMOGLOBIN 27.8 pg (27.0-34.8); MEAN CORPUSCULAR HGB CONC 31.9 g/dL (32.4-35.8); MEAN PLATELET VOLUME 7.8 fL (7.4-10.4); MONOCYTES % (AUTO) 11 % (2-9); NEUTROPHILS % (AUTO) 65 % (42-75); PLATELET COUNT 317 x10^3/uL (130-400); RED BLOOD COUNT 4.32 x10^6/uL (3.82-5.3); RED CELL DISTRIBUTION WIDTH 15.1 % (9.6-15.2)
[2020-04-02 18:34] LABS: MD NO
[2020-04-02 18:37] LABS: ALBUMIN 2.8 g/dL (3.4-5.0); ANION GAP 6 mmol/L (5-15); CALCIUM 8.3 mg/dL (8.5-10.1); CHLORIDE 104 mmol/L (98-107); CREATININE 1.79 mg/dL (0.55-1.02)
--- NOTE | 2020-04-02 18:39 | NUR ---
ABX INITIATED. NO BC PER ERP
[2020-04-02] MEDS ORDERED: SERT50TA28 PO (18:51)
[2020-04-02] MEDS ORDERED: HYDR25TA6 PO (18:51)
[2020-04-02] MEDS ORDERED: ATOR-2 PO (18:51)
[2020-04-02] MEDS ORDERED: LIDOCAINE 4% PATCH (18:51)
[2020-04-02] MEDS ORDERED: CETI10TA32 PO (18:51)
[2020-04-02] MEDS ORDERED: NEOSPORIN OINT. PKT 1 PACKET ONE (19:26)
--- NOTE | 2020-04-02 19:52 | NUR ---
NO S/S OF ABX RXN. SECOND ABX INITIATED. WOUNDS CLEANED/DRESSED BY TECH.
[2020-04-02] MEDS ORDERED: ONDANSETRON ODT 4 MG PO PRN (20:30)
[2020-04-02] MEDS ORDERED: BISACODYL 10 MG SUPP PR PRN (20:30)
[2020-04-02] MEDS ORDERED: POTASSIUM CHLORIDE 20 MEQ TAB.ER.PRT PO ONE (20:30)
[2020-04-02] MEDS ORDERED: VANCOMYCIN PER PHARMACY MC PRN (20:30)
[2020-04-02] MEDS ORDERED: POLYETHYLENE GLYCOL 17 GM PACKET PO PRN (20:30)
--- NOTE | 2020-04-02 20:30 | NUR ---
PT ASSISTED TO BED ROBIN. LINENS CHANGED, PT POSITIONED FOR COMFORT. ABX CONTINUES TO INFUSE. AWAITING ADMIT
[2020-04-02 21:00] LABS: INTERNATIONAL NORMALIZED RATIO 10.25 (0.93-1.1); PROTHROMBIN TIME 106.2 Seconds (9.6-11.5)
[2020-04-02] MEDS ORDERED: WARFARIN 3 MG TABLET PO-COUM SCH (21:00)
--- NOTE | 2020-04-02 21:01 | NUR ---
REPORT TO CHENG WILLIAM
--- NOTE | 2020-04-02 21:18 | NUR ---
CRITICAL VALUES COLLECTED AND REPORT TO CAMILA COOPER HOSPITALIST GRIT REMOVAL OPERATOR. VERBAL ORDERS RECEIVED TO HOLD ANTICOAGULATION. FLOOR RN MADE AWARE.
[2020-04-02 21:41] VITALS: BP 134/73
[2020-04-02] MEDS: SODIUM CHLORIDE 0.9% 1,000 ML IV SCH (21:57)
[2020-04-02] MEDS ORDERED: PHARMACOKINETIC CONSULTATION MC ONE (22:30)
[2020-04-02] MEDS ORDERED: PHARMACOKINETIC MONITORING MC PRN (22:30)
[2020-04-02] MEDS: ATORVASTATIN 20 MG TABLET PO SCH (22:45)
[2020-04-02] MEDS: METOPROLOL TARTRATE 25 MG TAB PO SCH (22:45)
[2020-04-03 00:30] VITALS: BP 135/70
[2020-04-03] MEDS: CLINDAMYCIN PMX 600MG/50ML 50 ML IV SCH ×3 (02:24→17:49)
[2020-04-03 06:01] VITALS: BP 123/73
[2020-04-03] MEDS: LEVOTHYROXINE 112 MCG TABLET PO SCH (06:03)
[2020-04-03] MEDS: METOPROLOL TARTRATE 25 MG TAB PO SCH ×2 (06:03→17:46)
[2020-04-03 07:01] LABS: BASOPHILS % (AUTO) 1 % (0-1); EOSINOPHILS % (AUTO) 2 % (1-7); LYMPHOCYTES % (AUTO) 11 % (22-44); MEAN CORPUSCULAR HEMOGLOBIN 28.2 pg (27.0-34.8); MEAN CORPUSCULAR HGB CONC 32.5 g/dL (32.4-35.8); MEAN PLATELET VOLUME 7.7 fL (7.4-10.4); MONOCYTES % (AUTO) 8 % (2-9); NEUTROPHILS % (AUTO) 79 % (42-75); PLATELET COUNT 293 x10^3/uL (130-400); RED BLOOD COUNT 4.12 x10^6/uL (3.82-5.3); RED CELL DISTRIBUTION WIDTH 15.2 % (9.6-15.2)
[2020-04-03 07:14] LABS: MD NO
[2020-04-03 07:15] LABS: ANION GAP 5 mmol/L (5-15); CALCIUM 8.3 mg/dL (8.5-10.1); CHLORIDE 106 mmol/L (98-107)
[2020-04-03 07:16] LABS: CREATININE 1.17 mg/dL (0.55-1.02)
[2020-04-03] MEDS: POTASSIUM CHLORIDE 20 MEQ TAB.ER.PRT PO SCH (08:29)
[2020-04-03] MEDS: CETIRIZINE 10 MG TABLET PO SCH (08:29)
[2020-04-03] MEDS: AMIODARONE 200 MG TABLET PO SCH (08:30)
[2020-04-03] MEDS: SERTRALINE 50MG TABLET PO SCH (08:30)
[2020-04-03] MEDS: SENNA/DOCUSATE TABLET PO SCH (08:30)
[2020-04-03] MEDS ORDERED: HYDROCHLOROTHIAZIDE 25 MG TABLET PO SCH (09:00)
[2020-04-03] MEDS ORDERED: VALSARTAN 80 MG TABLET PO SCH (09:00)
[2020-04-03] MEDS ORDERED: POTASSIUM CHLORIDE 20 MEQ in SODIUM CHLORIDE 0.9% 250 ML IV ONE (09:30)
[2020-04-03] MEDS: MULTIVITS,STRESS FORMULA 1 TABLET PO SCH (09:55)
[2020-04-03] MEDS: ZINC SULFATE 220 MG CAPSULE PO SCH (09:55)
[2020-04-03] MEDS: CHOLECALCIFEROL 5,000u TAB PO SCH (09:55)
[2020-04-03] MEDS: SODIUM CHLORIDE 0.9% 1,000 ML IV SCH (10:00)
[2020-04-03] MEDS: VANCOMYCIN 1,300 MG in SODIUM CHLORIDE 0.9% 250 ML IV SCH (13:28)
[2020-04-03 14:30] VITALS: BP 122/76
[2020-04-03] MEDS: ASCORBIC ACID 500 MG TABLET PO SCH (17:49)
[2020-04-03 18:45] VITALS: BP 126/73
[2020-04-03] MEDS: ATORVASTATIN 20 MG TABLET PO SCH (20:12)
[2020-04-04] MEDS: ACETAMINOPHEN 325 MG TABLET PO PRN ×4 (00:36→19:53)
[2020-04-04] MEDS: CLINDAMYCIN PMX 600MG/50ML 50 ML IV SCH ×3 (02:24→18:08)
[2020-04-04 03:59] VITALS: BP 133/76
[2020-04-04 05:46] LABS: BASOPHILS % (AUTO) 0 % (0-1); EOSINOPHILS % (AUTO) 2 % (1-7); LYMPHOCYTES % (AUTO) 13 % (22-44); MEAN CORPUSCULAR HEMOGLOBIN 28.4 pg (27.0-34.8); MEAN CORPUSCULAR HGB CONC 32.7 g/dL (32.4-35.8); MEAN PLATELET VOLUME 7.9 fL (7.4-10.4); MONOCYTES % (AUTO) 8 % (2-9); NEUTROPHILS % (AUTO) 77 % (42-75); PLATELET COUNT 259 x10^3/uL (130-400); RED BLOOD COUNT 3.79 x10^6/uL (3.82-5.3); RED CELL DISTRIBUTION WIDTH 15.4 % (9.6-15.2)
[2020-04-04 05:58] LABS: ALBUMIN 2.5 g/dL (3.4-5.0); ANION GAP 7 mmol/L (5-15); CALCIUM 8.1 mg/dL (8.5-10.1); CHLORIDE 106 mmol/L (98-107); CREATININE 1.03 mg/dL (0.55-1.02)
[2020-04-04 06:04] LABS: MD NO
[2020-04-04] MEDS: METOPROLOL TARTRATE 25 MG TAB PO SCH (06:30)
[2020-04-04] MEDS: LEVOTHYROXINE 112 MCG TABLET PO SCH (06:30)
[2020-04-04 06:33] VITALS: BP 154/97
[2020-04-04] MEDS: SODIUM CHLORIDE 0.9% 1,000 ML IV SCH (07:06)
[2020-04-04] MEDS: VANCOMYCIN 1,300 MG in SODIUM CHLORIDE 0.9% 250 ML IV SCH (07:41)
[2020-04-04] MEDS: AMIODARONE 200 MG TABLET PO SCH (07:47)
[2020-04-04] MEDS: CETIRIZINE 10 MG TABLET PO SCH (07:47)
[2020-04-04] MEDS: ZINC SULFATE 220 MG CAPSULE PO SCH (07:47)
[2020-04-04] MEDS: ASCORBIC ACID 500 MG TABLET PO SCH ×2 (07:47→16:33)
[2020-04-04] MEDS: SERTRALINE 50MG TABLET PO SCH (07:47)
[2020-04-04] MEDS: CHOLECALCIFEROL 5,000u TAB PO SCH (07:47)
[2020-04-04] MEDS: POTASSIUM CHLORIDE 20 MEQ TAB.ER.PRT PO SCH (07:47)
[2020-04-04] MEDS: SENNA/DOCUSATE TABLET PO SCH ×2 (07:47→09:38)
[2020-04-04] MEDS: MULTIVITS,STRESS FORMULA 1 TABLET PO SCH (07:47)
[2020-04-04 07:48] VITALS: BP 178/92
[2020-04-04 14:01] VITALS: BP 139/83
[2020-04-04 18:50] VITALS: BP 158/83
[2020-04-04] MEDS: ATORVASTATIN 20 MG TABLET PO SCH (19:53)
[2020-04-05] MEDS: VANCOMYCIN 1,300 MG in SODIUM CHLORIDE 0.9% 250 ML IV SCH ×2 (01:40→20:13)
[2020-04-05 02:16] VITALS: BP 147/85
[2020-04-05] MEDS: CLINDAMYCIN PMX 600MG/50ML 50 ML IV SCH ×3 (04:25→18:31)
[2020-04-05] MEDS: LEVOTHYROXINE 112 MCG TABLET PO SCH (06:30)
[2020-04-05 07:36] VITALS: BP 146/90
[2020-04-05] MEDS: ASCORBIC ACID 500 MG TABLET PO SCH ×2 (09:20→16:23)
[2020-04-05] MEDS: POTASSIUM CHLORIDE 20 MEQ TAB.ER.PRT PO SCH (09:20)
[2020-04-05] MEDS: CETIRIZINE 10 MG TABLET PO SCH (09:20)
[2020-04-05] MEDS: AMIODARONE 200 MG TABLET PO SCH (09:20)
[2020-04-05] MEDS: MULTIVITS,STRESS FORMULA 1 TABLET PO SCH (09:20)
[2020-04-05] MEDS: SENNA/DOCUSATE TABLET PO SCH (09:20)
[2020-04-05] MEDS: ZINC SULFATE 220 MG CAPSULE PO SCH (09:20)
[2020-04-05] MEDS: SERTRALINE 50MG TABLET PO SCH (09:20)
[2020-04-05] MEDS: CHOLECALCIFEROL 5,000u TAB PO SCH (09:20)
[2020-04-05] MEDS: ACETAMINOPHEN 325 MG TABLET PO PRN (09:21)
[2020-04-05 12:38] VITALS: BP 155/94
[2020-04-05 18:52] VITALS: BP 100/70
[2020-04-05] MEDS: ATORVASTATIN 20 MG TABLET PO SCH (20:13)
[2020-04-05 20:20] VITALS: BP 135/82
[2020-04-06 00:09] VITALS: BP 124/71
[2020-04-06] MEDS: CLINDAMYCIN PMX 600MG/50ML 50 ML IV SCH ×2 (02:57→09:44)
[2020-04-06] MEDS: LEVOTHYROXINE 112 MCG TABLET PO SCH (05:40)
[2020-04-06 06:09] LABS: BASOPHILS % (AUTO) 0 % (0-1); EOSINOPHILS % (AUTO) 2 % (1-7); LYMPHOCYTES % (AUTO) 12 % (22-44); MEAN CORPUSCULAR HEMOGLOBIN 28.1 pg (27.0-34.8); MEAN PLATELET VOLUME 8.1 fL (7.4-10.4); MONOCYTES % (AUTO) 9 % (2-9); NEUTROPHILS % (AUTO) 77 % (42-75); PLATELET COUNT 267 x10^3/uL (130-400); RED BLOOD COUNT 3.91 x10^6/uL (3.82-5.3); RED CELL DISTRIBUTION WIDTH 14.9 % (9.6-15.2)
[2020-04-06 06:27] LABS: MD NO
[2020-04-06 06:46] VITALS: BP 117/69
[2020-04-06] MEDS: CETIRIZINE 10 MG TABLET PO SCH (08:14)
[2020-04-06] MEDS: CHOLECALCIFEROL 5,000u TAB PO SCH (08:14)
[2020-04-06] MEDS: POTASSIUM CHLORIDE 20 MEQ TAB.ER.PRT PO SCH (08:14)
[2020-04-06] MEDS: MULTIVITS,STRESS FORMULA 1 TABLET PO SCH (08:14)
[2020-04-06] MEDS: ZINC SULFATE 220 MG CAPSULE PO SCH (08:14)
[2020-04-06] MEDS: AMIODARONE 200 MG TABLET PO SCH (08:15)
[2020-04-06] MEDS: SERTRALINE 50MG TABLET PO SCH (08:15)
[2020-04-06] MEDS: SENNA/DOCUSATE TABLET PO SCH (08:15)
[2020-04-06] MEDS: ASCORBIC ACID 500 MG TABLET PO SCH ×2 (08:15→17:41)
[2020-04-06 10:42] LABS: CHLORIDE 103 mmol/L (98-107)
[2020-04-06 10:43] LABS: ALBUMIN 2.3 g/dL (3.4-5.0); CREATININE 0.99 mg/dL (0.55-1.02)
[2020-04-06 11:06] LABS: ANION GAP 10 mmol/L (5-15)
[2020-04-06] MEDS ORDERED: MAGNESIUM SULFATE PMX 2GM/50ML 50 ML IV ONE (12:30)
[2020-04-06] MEDS ORDERED: POTASSIUM CHLORIDE 20 MEQ in SODIUM CHLORIDE 0.9% 250 ML IV ONE (12:30)
[2020-04-06 13:58] VITALS: BP 122/74
[2020-04-06 19:26] VITALS: BP 116/69
[2020-04-06] MEDS: DOXYCYCLINE 100MG CAP PO SCH (21:00)
[2020-04-06] MEDS: ATORVASTATIN 20 MG TABLET PO SCH (21:52)
[2020-04-07 05:09] VITALS: BP 137/80
[2020-04-07] MEDS: LEVOTHYROXINE 112 MCG TABLET PO SCH (05:58)
[2020-04-07 06:46] VITALS: BP 153/87
[2020-04-07] MEDS: MULTIVITS,STRESS FORMULA 1 TABLET PO SCH (08:42)
[2020-04-07] MEDS: SENNA/DOCUSATE TABLET PO SCH (08:42)
[2020-04-07] MEDS: AMIODARONE 200 MG TABLET PO SCH (08:43)
[2020-04-07] MEDS: ASCORBIC ACID 500 MG TABLET PO SCH ×2 (08:43→15:18)
[2020-04-07] MEDS: CETIRIZINE 10 MG TABLET PO SCH (08:43)
[2020-04-07] MEDS: SERTRALINE 50MG TABLET PO SCH (08:43)
[2020-04-07] MEDS: CHOLECALCIFEROL 5,000u TAB PO SCH (08:43)
[2020-04-07] MEDS: POTASSIUM CHLORIDE 20 MEQ TAB.ER.PRT PO SCH (08:43)
[2020-04-07] MEDS: ZINC SULFATE 220 MG CAPSULE PO SCH (08:44)
[2020-04-07] MEDS: DOXYCYCLINE 100MG CAP PO SCH ×2 (08:44→20:41)
[2020-04-07 12:18] VITALS: BP 134/81
[2020-04-07] MEDS ORDERED: MAGNESIUM SULFATE PMX 2GM/50ML 50 ML IV ONE (17:00)
[2020-04-07] MEDS ORDERED: POTASSIUM CHLORIDE 20 MEQ in SODIUM CHLORIDE 0.9% 250 ML IV ONE (17:00)
[2020-04-07] MEDS: CEFTRIAXONE PMX 1GM/50ML 50 ML IV SCH (17:34)
[2020-04-07 18:38] VITALS: BP 159/89
[2020-04-07] MEDS: ATORVASTATIN 20 MG TABLET PO SCH (20:41)
[2020-04-08 00:30] VITALS: BP 160/87
[2020-04-08] MEDS: LEVOTHYROXINE 112 MCG TABLET PO SCH (05:31)
[2020-04-08] MEDS: CEFTRIAXONE PMX 1GM/50ML 50 ML IV SCH ×2 (05:54→17:27)
[2020-04-08 06:47] VITALS: BP 162/65
[2020-04-08 08:17] LABS: BASOPHILS % (AUTO) 1 % (0-1); EOSINOPHILS % (AUTO) 2 % (1-7); LYMPHOCYTES % (AUTO) 9 % (22-44); MEAN CORPUSCULAR HEMOGLOBIN 28.7 pg (27.0-34.8); MEAN CORPUSCULAR HGB CONC 33.3 g/dL (32.4-35.8); MEAN PLATELET VOLUME 8.1 fL (7.4-10.4); MONOCYTES % (AUTO) 9 % (2-9); NEUTROPHILS % (AUTO) 79 % (42-75); PLATELET COUNT 302 x10^3/uL (130-400); RED BLOOD COUNT 3.97 x10^6/uL (3.82-5.3); RED CELL DISTRIBUTION WIDTH 15.3 % (9.6-15.2)
[2020-04-08 08:25] LABS: MD NO
[2020-04-08 08:28] LABS: ALBUMIN 2.4 g/dL (3.4-5.0); ANION GAP 7 mmol/L (5-15); CALCIUM 8.4 mg/dL (8.5-10.1); CHLORIDE 107 mmol/L (98-107); CREATININE 0.84 mg/dL (0.55-1.02)
[2020-04-08] MEDS: CHOLECALCIFEROL 5,000u TAB PO SCH (08:34)
[2020-04-08] MEDS: ZINC SULFATE 220 MG CAPSULE PO SCH (08:34)
[2020-04-08] MEDS: MULTIVITS,STRESS FORMULA 1 TABLET PO SCH (08:34)
[2020-04-08] MEDS: ASCORBIC ACID 500 MG TABLET PO SCH ×2 (08:34→17:27)
[2020-04-08] MEDS: CETIRIZINE 10 MG TABLET PO SCH (08:34)
[2020-04-08] MEDS: SERTRALINE 50MG TABLET PO SCH (08:34)
[2020-04-08] MEDS: SENNA/DOCUSATE TABLET PO SCH (08:34)
[2020-04-08] MEDS: POTASSIUM CHLORIDE 20 MEQ TAB.ER.PRT PO SCH (08:34)
[2020-04-08] MEDS: AMIODARONE 200 MG TABLET PO SCH (08:34)
[2020-04-08] MEDS: DOXYCYCLINE 100MG CAP PO SCH ×2 (08:36→20:35)
[2020-04-08 12:13] VITALS: BP 162/82
[2020-04-08 19:21] VITALS: BP 131/73
[2020-04-08] MEDS: ATORVASTATIN 20 MG TABLET PO SCH (20:32)
[2020-04-08 20:44] VITALS: BP 131/73
[2020-04-08] MEDS: ACETAMINOPHEN 325 MG TABLET PO PRN (23:15)
[2020-04-09 01:20] VITALS: BP 136/80
[2020-04-09] MEDS: CEFTRIAXONE PMX 1GM/50ML 50 ML IV SCH ×2 (05:24→17:40)
[2020-04-09] MEDS: LEVOTHYROXINE 112 MCG TABLET PO SCH (05:24)
[2020-04-09 07:33] VITALS: BP 172/81
[2020-04-09] MEDS: ZINC SULFATE 220 MG CAPSULE PO SCH (07:48)
[2020-04-09] MEDS: SENNA/DOCUSATE TABLET PO SCH (07:48)
[2020-04-09] MEDS: DOXYCYCLINE 100MG CAP PO SCH ×2 (07:49→20:25)
[2020-04-09] MEDS: ASCORBIC ACID 500 MG TABLET PO SCH ×2 (07:49→17:39)
[2020-04-09] MEDS: SERTRALINE 50MG TABLET PO SCH (07:50)
[2020-04-09] MEDS: AMIODARONE 200 MG TABLET PO SCH (07:50)
[2020-04-09] MEDS: CETIRIZINE 10 MG TABLET PO SCH (07:50)
[2020-04-09] MEDS: CHOLECALCIFEROL 5,000u TAB PO SCH (07:50)
[2020-04-09] MEDS: MULTIVITS,STRESS FORMULA 1 TABLET PO SCH (07:50)
[2020-04-09] MEDS: POTASSIUM CHLORIDE 20 MEQ TAB.ER.PRT PO SCH (07:50)
[2020-04-09 12:29] LABS: INTERNATIONAL NORMALIZED RATIO 2.49 (0.93-1.1); PROTHROMBIN TIME 26.2 Seconds (9.6-11.5)
[2020-04-09 13:29] VITALS: BP 132/81
[2020-04-09] MEDS ORDERED: WARFARIN 2 MG TABLET PO-COUM ONE (17:34)
[2020-04-09] MEDS ORDERED: WARFARIN 3 MG TABLET PO-COUM ONE (18:00)
[2020-04-09 19:12] VITALS: BP 154/77
[2020-04-09] MEDS: ATORVASTATIN 20 MG TABLET PO SCH (20:25)
[2020-04-10] MEDS: ACETAMINOPHEN 325 MG TABLET PO PRN (00:45)
[2020-04-10 02:10] VITALS: BP 136/80
[2020-04-10] MEDS: CEFTRIAXONE PMX 1GM/50ML 50 ML IV SCH (06:23)
[2020-04-10] MEDS: LEVOTHYROXINE 112 MCG TABLET PO SCH (06:23)
[2020-04-10 06:27] LABS: BASOPHILS % (AUTO) 1 % (0-1); EOSINOPHILS % (AUTO) 3 % (1-7); INTERNATIONAL NORMALIZED RATIO 2.23 (0.93-1.1); LYMPHOCYTES % (AUTO) 17 % (22-44); MEAN CORPUSCULAR HEMOGLOBIN 28.4 pg (27.0-34.8); MEAN CORPUSCULAR HGB CONC 33.4 g/dL (32.4-35.8); MEAN PLATELET VOLUME 8.1 fL (7.4-10.4); MONOCYTES % (AUTO) 11 % (2-9); NEUTROPHILS % (AUTO) 68 % (42-75); PLATELET COUNT 328 x10^3/uL (130-400); PROTHROMBIN TIME 23.4 Seconds (9.6-11.5); RED CELL DISTRIBUTION WIDTH 15.4 % (9.6-15.2)
[2020-04-10 06:32] LABS: ANION GAP 6 mmol/L (5-15); CALCIUM 8.6 mg/dL (8.5-10.1); CHLORIDE 106 mmol/L (98-107); CREATININE 0.98 mg/dL (0.55-1.02)
[2020-04-10 06:37] LABS: MD NO
[2020-04-10 07:48] VITALS: BP 163/92
[2020-04-10] MEDS: DOXYCYCLINE 100MG CAP PO SCH (09:00)
[2020-04-10] MEDS: MULTIVITS,STRESS FORMULA 1 TABLET PO SCH (09:55)
[2020-04-10] MEDS: CETIRIZINE 10 MG TABLET PO SCH (09:55)
[2020-04-10] MEDS: POTASSIUM CHLORIDE 20 MEQ TAB.ER.PRT PO SCH (09:55)
[2020-04-10] MEDS: ZINC SULFATE 220 MG CAPSULE PO SCH (09:55)
[2020-04-10] MEDS: SENNA/DOCUSATE TABLET PO SCH (09:55)
[2020-04-10] MEDS: AMIODARONE 200 MG TABLET PO SCH (09:55)
[2020-04-10] MEDS: CHOLECALCIFEROL 5,000u TAB PO SCH (09:56)
[2020-04-10] MEDS: ASCORBIC ACID 500 MG TABLET PO SCH ×2 (09:56→16:26)
[2020-04-10] MEDS: SERTRALINE 50MG TABLET PO SCH (09:56)
[2020-04-10 12:44] VITALS: BP 147/89
[2020-04-10] MEDS ORDERED: WARFARIN 3 MG TABLET PO-COUM ONE (18:00)
[2020-04-10 20:36] VITALS: BP 161/90
[2020-04-10] MEDS: ATORVASTATIN 20 MG TABLET PO SCH (20:53)
[2020-04-11 01:25] VITALS: BP 161/105
[2020-04-11 01:58] VITALS: BP 170/99
[2020-04-11] MEDS ORDERED: hydrALAzine 20 MG/ML, 1ML IV PRN (02:30)
[2020-04-11 03:25] VITALS: BP 143/76
[2020-04-11] MEDS: LEVOTHYROXINE 112 MCG TABLET PO SCH (06:05)
[2020-04-11] MEDS: POTASSIUM CHLORIDE 20 MEQ TAB.ER.PRT PO SCH (08:00)
[2020-04-11] MEDS: ASCORBIC ACID 500 MG TABLET PO SCH ×2 (08:00→17:21)
[2020-04-11 08:22] VITALS: BP 126/76
[2020-04-11] MEDS ORDERED: ASCORBIC ACID 250 MG TAB ONE (08:35)
[2020-04-11] MEDS: MULTIVITS,STRESS FORMULA 1 TABLET PO SCH (08:39)
[2020-04-11] MEDS: SENNA/DOCUSATE TABLET PO SCH (08:39)
[2020-04-11] MEDS: CETIRIZINE 10 MG TABLET PO SCH (08:39)
[2020-04-11] MEDS: CHOLECALCIFEROL 5,000u TAB PO SCH (08:39)
[2020-04-11] MEDS: ZINC SULFATE 220 MG CAPSULE PO SCH (08:39)
[2020-04-11] MEDS: AMIODARONE 200 MG TABLET PO SCH (08:41)
[2020-04-11] MEDS: SERTRALINE 50MG TABLET PO SCH (08:41)
[2020-04-11 08:58] LABS: INTERNATIONAL NORMALIZED RATIO 2.47 (0.93-1.1)
[2020-04-11 12:27] VITALS: BP 97/60
[2020-04-11] MEDS ORDERED: WARFARIN 3 MG TABLET PO-COUM ONE (18:00)
[2020-04-11 19:43] VITALS: BP 168/77
[2020-04-11] MEDS: ATORVASTATIN 20 MG TABLET PO SCH (23:21)
[2020-04-12 02:24] VITALS: BP 159/97
[2020-04-12] MEDS: LEVOTHYROXINE 112 MCG TABLET PO SCH (06:10)
[2020-04-12 07:50] VITALS: BP 103/67
[2020-04-12 07:57] LABS: INTERNATIONAL NORMALIZED RATIO 2.83 (0.93-1.1); PROTHROMBIN TIME 29.7 Seconds (9.6-11.5)
[2020-04-12] MEDS: SENNA/DOCUSATE TABLET PO SCH (09:00)
[2020-04-12] MEDS: MULTIVITS,STRESS FORMULA 1 TABLET PO SCH (11:17)
[2020-04-12] MEDS: SERTRALINE 50MG TABLET PO SCH (11:17)
[2020-04-12] MEDS: CETIRIZINE 10 MG TABLET PO SCH (11:17)
[2020-04-12] MEDS: POTASSIUM CHLORIDE 20 MEQ TAB.ER.PRT PO SCH (11:17)
[2020-04-12] MEDS: CHOLECALCIFEROL 5,000u TAB PO SCH (11:17)
[2020-04-12] MEDS: ASCORBIC ACID 500 MG TABLET PO SCH ×2 (11:17→17:35)
[2020-04-12] MEDS: ZINC SULFATE 220 MG CAPSULE PO SCH (11:18)
[2020-04-12] MEDS: AMIODARONE 200 MG TABLET PO SCH (11:18)
[2020-04-12 15:33] VITALS: BP 115/78
[2020-04-12] MEDS ORDERED: WARFARIN 3 MG TABLET PO-COUM ONE (18:00)
[2020-04-12 19:54] VITALS: BP 133/84
[2020-04-12] MEDS: ATORVASTATIN 20 MG TABLET PO SCH (20:01)
[2020-04-12] MEDS: ACETAMINOPHEN 325 MG TABLET PO PRN (23:46)
[2020-04-13 05:42] LABS: INTERNATIONAL NORMALIZED RATIO 3.26 (0.93-1.1); PROTHROMBIN TIME 34.2 Seconds (9.6-11.5)
[2020-04-13] MEDS: LEVOTHYROXINE 112 MCG TABLET PO SCH (06:28)
[2020-04-13 07:43] VITALS: BP 160/84
[2020-04-13] MEDS: ASCORBIC ACID 500 MG TABLET PO SCH ×2 (08:00→17:31)
[2020-04-13] MEDS: POTASSIUM CHLORIDE 20 MEQ TAB.ER.PRT PO SCH (08:00)
[2020-04-13] MEDS: CHOLECALCIFEROL 5,000u TAB PO SCH (09:00)
[2020-04-13] MEDS: ZINC SULFATE 220 MG CAPSULE PO SCH (09:00)
[2020-04-13] MEDS: CETIRIZINE 10 MG TABLET PO SCH (09:00)
[2020-04-13] MEDS: MULTIVITS,STRESS FORMULA 1 TABLET PO SCH (09:00)
[2020-04-13] MEDS: SENNA/DOCUSATE TABLET PO SCH (09:00)
[2020-04-13] MEDS: AMIODARONE 200 MG TABLET PO SCH (09:00)
[2020-04-13] MEDS: SERTRALINE 50MG TABLET PO SCH (09:00)
[2020-04-13 13:27] VITALS: BP 135/74
[2020-04-13] MEDS ORDERED: WARFARIN 2 MG TABLET PO-COUM ONE (18:00)
[2020-04-13 20:05] VITALS: BP 125/76
[2020-04-13] MEDS: ATORVASTATIN 20 MG TABLET PO SCH (22:04)
[2020-04-14 01:25] VITALS: BP 132/77
[2020-04-14] MEDS: LEVOTHYROXINE 112 MCG TABLET PO SCH (05:20)
[2020-04-14 06:23] LABS: INTERNATIONAL NORMALIZED RATIO 4.14 (0.93-1.1); PROTHROMBIN TIME 43.3 Seconds (9.6-11.5)
[2020-04-14 06:45] VITALS: BP 163/94
[2020-04-14] MEDS: ZINC SULFATE 220 MG CAPSULE PO SCH (09:10)
[2020-04-14] MEDS: CETIRIZINE 10 MG TABLET PO SCH (09:10)
[2020-04-14] MEDS: SENNA/DOCUSATE TABLET PO SCH (09:10)
[2020-04-14] MEDS: ASCORBIC ACID 500 MG TABLET PO SCH ×2 (09:10→17:21)
[2020-04-14] MEDS: MULTIVITS,STRESS FORMULA 1 TABLET PO SCH (09:10)
[2020-04-14] MEDS: SERTRALINE 50MG TABLET PO SCH (09:11)
[2020-04-14] MEDS: AMIODARONE 200 MG TABLET PO SCH (09:11)
[2020-04-14] MEDS: POTASSIUM CHLORIDE 20 MEQ TAB.ER.PRT PO SCH (09:11)
[2020-04-14] MEDS: LIDODERM 5% PATCH TD SCH (09:12)
[2020-04-14] MEDS: CHOLECALCIFEROL 5,000u TAB PO SCH (09:12)
[2020-04-14 12:27] VITALS: BP 136/86
[2020-04-14] MEDS: METOPROLOL TARTRATE 25 MG TAB PO SCH (17:21)
[2020-04-14 20:09] VITALS: BP 152/76
[2020-04-14] MEDS: LIDODERM REMOVE PATCH NOTE XX SCH (20:30)
[2020-04-14] MEDS: ATORVASTATIN 20 MG TABLET PO SCH (21:20)
[2020-04-15] MEDS: LEVOTHYROXINE 112 MCG TABLET PO SCH ×2 (04:52→06:00)
[2020-04-15] MEDS: METOPROLOL TARTRATE 25 MG TAB PO SCH ×2 (04:52→06:00)
[2020-04-15 04:55] VITALS: BP 146/78
[2020-04-15 05:26] LABS: INTERNATIONAL NORMALIZED RATIO 3.9 (0.93-1.1); PROTHROMBIN TIME 40.8 Seconds (9.6-11.5)
[2020-04-15 07:10] VITALS: BP 144/76
[2020-04-15] MEDS: ASCORBIC ACID 500 MG TABLET PO SCH ×2 (08:31→18:46)
[2020-04-15] MEDS: MULTIVITS,STRESS FORMULA 1 TABLET PO SCH (08:31)
[2020-04-15] MEDS: POTASSIUM CHLORIDE 20 MEQ TAB.ER.PRT PO SCH (08:31)
[2020-04-15] MEDS: ZINC SULFATE 220 MG CAPSULE PO SCH (08:31)
[2020-04-15] MEDS: CETIRIZINE 10 MG TABLET PO SCH (08:31)
[2020-04-15] MEDS: SENNA/DOCUSATE TABLET PO SCH (08:31)
[2020-04-15] MEDS: CHOLECALCIFEROL 5,000u TAB PO SCH (08:31)
[2020-04-15] MEDS: AMIODARONE 200 MG TABLET PO SCH (08:31)
[2020-04-15] MEDS: SERTRALINE 50MG TABLET PO SCH (08:31)
[2020-04-15] MEDS: LIDODERM 5% PATCH TD SCH (08:32)
[2020-04-15 14:34] VITALS: BP 114/71
[2020-04-15] MEDS ORDERED: WARFARIN 1 MG TABLET PO-COUM SCH (18:00)
[2020-04-15] MEDS ORDERED: WARFARIN 2 MG TABLET PO-COUM ONE (18:42)
[2020-04-15] MEDS: METOPROLOL TARTRATE 50 MG TAB PO SCH (18:46)
[2020-04-15 20:00] VITALS: BP 133/66
[2020-04-15 21:21] VITALS: BP 113/66
[2020-04-15] MEDS: ATORVASTATIN 20 MG TABLET PO SCH (22:00)
[2020-04-15] MEDS: LIDODERM REMOVE PATCH NOTE XX SCH (22:00)
[2020-04-16 02:00] VITALS: BP 136/76
[2020-04-16 05:48] VITALS: BP 148/79
[2020-04-16] MEDS: METOPROLOL TARTRATE 50 MG TAB PO SCH ×2 (05:50→17:47)
[2020-04-16] MEDS: LEVOTHYROXINE 112 MCG TABLET PO SCH (05:50)
[2020-04-16 06:45] LABS: INTERNATIONAL NORMALIZED RATIO 3.06 (0.93-1.1); PROTHROMBIN TIME 32.1 Seconds (9.6-11.5)
[2020-04-16 06:47] VITALS: BP 148/84
[2020-04-16] MEDS: POTASSIUM CHLORIDE 20 MEQ TAB.ER.PRT PO SCH (10:01)
[2020-04-16] MEDS: SERTRALINE 50MG TABLET PO SCH (10:02)
[2020-04-16] MEDS: ASCORBIC ACID 500 MG TABLET PO SCH ×3 (10:02→17:47)
[2020-04-16] MEDS: MULTIVITS,STRESS FORMULA 1 TABLET PO SCH (10:02)
[2020-04-16] MEDS: AMIODARONE 200 MG TABLET PO SCH (10:02)
[2020-04-16] MEDS: CHOLECALCIFEROL 5,000u TAB PO SCH (10:02)
[2020-04-16] MEDS: ZINC SULFATE 220 MG CAPSULE PO SCH (10:02)
[2020-04-16] MEDS: SENNA/DOCUSATE TABLET PO SCH (10:02)
[2020-04-16] MEDS: CETIRIZINE 10 MG TABLET PO SCH (10:02)
[2020-04-16] MEDS: LIDODERM 5% PATCH TD SCH (10:03)
[2020-04-16 14:55] VITALS: BP 137/71
[2020-04-16] MEDS ORDERED: WARFARIN 1 MG TABLET PO-COUM SCH (18:00)
[2020-04-16] MEDS: LIDODERM REMOVE PATCH NOTE XX SCH (20:11)
[2020-04-16] MEDS: ATORVASTATIN 20 MG TABLET PO SCH (20:11)
[2020-04-16 20:43] VITALS: BP 145/85
[2020-04-17 01:29] VITALS: BP 144/87
[2020-04-17 06:48] VITALS: BP 136/73
[2020-04-17 08:17] LABS: INTERNATIONAL NORMALIZED RATIO 2.58 (0.93-1.1); PROTHROMBIN TIME 27.1 Seconds (9.6-11.5)
[2020-04-17] MEDS ORDERED: ACETAMINOPHEN 325 MG TABLET PO PRN (08:30)
[2020-04-17] MEDS: MULTIVITS,STRESS FORMULA 1 TABLET PO SCH (10:23)
[2020-04-17] MEDS: CETIRIZINE 10 MG TABLET PO SCH (10:23)
[2020-04-17] MEDS: ASCORBIC ACID 500 MG TABLET PO SCH ×2 (10:23→17:54)
[2020-04-17] MEDS: LEVOTHYROXINE 112 MCG TABLET PO SCH (10:24)
[2020-04-17] MEDS: ZINC SULFATE 220 MG CAPSULE PO SCH (10:24)
[2020-04-17] MEDS: AMIODARONE 200 MG TABLET PO SCH (10:24)
[2020-04-17] MEDS: METOPROLOL TARTRATE 50 MG TAB PO SCH ×2 (10:24→17:54)
[2020-04-17] MEDS: POTASSIUM CHLORIDE 20 MEQ TAB.ER.PRT PO SCH (10:24)
[2020-04-17] MEDS: SENNA/DOCUSATE TABLET PO SCH (10:25)
[2020-04-17] MEDS: CHOLECALCIFEROL 5,000u TAB PO SCH (10:25)
[2020-04-17] MEDS: LIDODERM 5% PATCH TD SCH (10:30)
[2020-04-17] MEDS: SERTRALINE 50MG TABLET PO SCH (10:30)
[2020-04-17 14:06] VITALS: BP 129/76
[2020-04-17] MEDS ORDERED: WARFARIN 5 MG TABLET PO-COUM ONE (17:43)
[2020-04-17 17:50] VITALS: BP 153/88
[2020-04-17] MEDS ORDERED: WARFARIN 2.5 MG TABLET PO-COUM SCH (18:00)
[2020-04-17 19:38] VITALS: BP 115/72
[2020-04-17] MEDS: LIDODERM REMOVE PATCH NOTE XX SCH (20:16)
[2020-04-17] MEDS: ATORVASTATIN 80 MG TABLET PO SCH (20:23)
[2020-04-18] MEDS: LEVOTHYROXINE 112 MCG TABLET PO SCH (05:07)
[2020-04-18] MEDS: METOPROLOL TARTRATE 50 MG TAB PO SCH ×2 (05:07→16:50)
[2020-04-18 06:09] LABS: INTERNATIONAL NORMALIZED RATIO 2.58 (0.93-1.1); PROTHROMBIN TIME 27.1 Seconds (9.6-11.5)
[2020-04-18] MEDS: CHOLECALCIFEROL 5,000u TAB PO SCH (08:41)
[2020-04-18] MEDS: POTASSIUM CHLORIDE 20 MEQ TAB.ER.PRT PO SCH (08:41)
[2020-04-18] MEDS: ZINC SULFATE 220 MG CAPSULE PO SCH (08:41)
[2020-04-18] MEDS: AMIODARONE 200 MG TABLET PO SCH (08:41)
[2020-04-18] MEDS: ASCORBIC ACID 500 MG TABLET PO SCH ×2 (08:42→16:50)
[2020-04-18] MEDS: MULTIVITS,STRESS FORMULA 1 TABLET PO SCH (08:42)
[2020-04-18] MEDS: SENNA/DOCUSATE TABLET PO SCH (08:42)
[2020-04-18] MEDS: CETIRIZINE 10 MG TABLET PO SCH (08:42)
[2020-04-18] MEDS: LIDODERM 5% PATCH TD SCH (08:44)
[2020-04-18] MEDS: SERTRALINE 50MG TABLET PO SCH (09:03)
[2020-04-18 12:17] VITALS: BP 93/57
[2020-04-18] MEDS ORDERED: WARFARIN 5 MG TABLET PO-COUM ONE (16:53)
[2020-04-18] MEDS ORDERED: WARFARIN 2.5 MG TABLET PO-COUM ONE (18:00)
[2020-04-18 18:33] VITALS: BP 129/81
[2020-04-18] MEDS: LIDODERM REMOVE PATCH NOTE XX SCH (20:30)
[2020-04-18] MEDS: ATORVASTATIN 80 MG TABLET PO SCH (21:00)
[2020-04-19 01:23] VITALS: BP 131/74
[2020-04-19 06:12] VITALS: BP 159/83
[2020-04-19] MEDS: LEVOTHYROXINE 112 MCG TABLET PO SCH (06:13)
[2020-04-19] MEDS: METOPROLOL TARTRATE 50 MG TAB PO SCH ×2 (06:13→16:29)
[2020-04-19 08:05] LABS: INTERNATIONAL NORMALIZED RATIO 2.99 (0.93-1.1); PROTHROMBIN TIME 31.4 Seconds (9.6-11.5)
[2020-04-19 08:29] VITALS: BP 153/83
[2020-04-19] MEDS: ASCORBIC ACID 500 MG TABLET PO SCH ×2 (09:12→16:29)
[2020-04-19] MEDS: POTASSIUM CHLORIDE 20 MEQ TAB.ER.PRT PO SCH (09:13)
[2020-04-19] MEDS: AMIODARONE 200 MG TABLET PO SCH (09:13)
[2020-04-19] MEDS: SENNA/DOCUSATE TABLET PO SCH (09:13)
[2020-04-19] MEDS: ZINC SULFATE 220 MG CAPSULE PO SCH (09:13)
[2020-04-19] MEDS: MULTIVITS,STRESS FORMULA 1 TABLET PO SCH (09:13)
[2020-04-19] MEDS: CETIRIZINE 10 MG TABLET PO SCH (09:13)
[2020-04-19] MEDS: SERTRALINE 50MG TABLET PO SCH (09:13)
[2020-04-19] MEDS: CHOLECALCIFEROL 5,000u TAB PO SCH (09:14)
[2020-04-19] MEDS: LIDODERM 5% PATCH TD SCH (09:14)
[2020-04-19 14:25] VITALS: BP 101/61
[2020-04-19] MEDS ORDERED: WARFARIN 2 MG TABLET PO-COUM ONE (18:00)
[2020-04-19 20:02] VITALS: BP_SYST 109; BP_SYST 148; BP_DIAS 71; BP_DIAS 84
[2020-04-19] MEDS: LIDODERM REMOVE PATCH NOTE XX SCH (20:16)
[2020-04-19] MEDS: ATORVASTATIN 80 MG TABLET PO SCH ×3 (20:44→20:46)
[2020-04-20 03:47] VITALS: BP 134/82
[2020-04-20 05:24] VITALS: BP 146/83
[2020-04-20] MEDS: LEVOTHYROXINE 112 MCG TABLET PO SCH (05:26)
[2020-04-20] MEDS: METOPROLOL TARTRATE 50 MG TAB PO SCH ×2 (05:26→16:01)
[2020-04-20 06:16] LABS: INTERNATIONAL NORMALIZED RATIO 4.7 (0.93-1.1); PROTHROMBIN TIME 49.1 Seconds (9.6-11.5)
[2020-04-20] MEDS: SENNA/DOCUSATE TABLET PO SCH ×2 (09:00→09:02)
[2020-04-20] MEDS: ASCORBIC ACID 500 MG TABLET PO SCH ×2 (09:02→16:00)
[2020-04-20] MEDS: MULTIVITS,STRESS FORMULA 1 TABLET PO SCH (09:02)
[2020-04-20] MEDS: CETIRIZINE 10 MG TABLET PO SCH (09:02)
[2020-04-20] MEDS: ZINC SULFATE 220 MG CAPSULE PO SCH (09:03)
[2020-04-20] MEDS: CHOLECALCIFEROL 5,000u TAB PO SCH (09:03)
[2020-04-20] MEDS: SERTRALINE 50MG TABLET PO SCH (09:03)
[2020-04-20] MEDS: AMIODARONE 200 MG TABLET PO SCH (09:03)
[2020-04-20] MEDS: POTASSIUM CHLORIDE 20 MEQ TAB.ER.PRT PO SCH (09:03)
[2020-04-20] MEDS: LIDODERM 5% PATCH TD SCH (09:05)
[2020-04-20 10:47] VITALS: BP 146/86
[2020-04-20] MEDS ORDERED: WARFARIN 1 MG TABLET PO-COUM ONE (18:00)
== END 2020-04-20 17:55 | DRG 682 ==
LOC: ED 18:52 → EDIP 19:27 → 3N 21:30
PROVIDERS: ADMIT Family Medicine; ATTEND Internal Medicine
DX: N17.9 Acute kidney failure, unspecified (principal); J18.9 Pneumonia, unspecified organism; J96.01 Acute respiratory failure with hypoxia; L03.115 Cellulitis of right lower limb; I48.20 Chronic atrial fibrillation, unspecified; D68.69 Other thrombophilia; F03.91 Unspecified dementia, unspecified severity, with behavioral disturbance; J98.11 Atelectasis; E87.6 Hypokalemia; Z20.828 Contact with and (suspected) exposure to other viral communicable diseases; N18.30 Chronic kidney disease, stage 3 unspecified; M85.80 Other specified disorders of bone density and structure, unspecified site; I12.9 Hypertensive chronic kidney disease with stage 1 through stage 4 chronic kidney disease, or unspecified chronic kidney disease; I51.7 Cardiomegaly; L89.899 Pressure ulcer of other site, unspecified stage; E11.22 Type 2 diabetes mellitus with diabetic chronic kidney disease; I25.10 Atherosclerotic heart disease of native coronary artery without angina pectoris; G89.29 Other chronic pain; G47.30 Sleep apnea, unspecified; E83.42 Hypomagnesemia; E11.40 Type 2 diabetes mellitus with diabetic neuropathy, unspecified; E03.9 Hypothyroidism, unspecified; I49.5 Sick sinus syndrome; Z74.01 Bed confinement status; Z79.01 Long term (current) use of anticoagulants; Z87.891 Personal history of nicotine dependence
CPT/HCPCS: 36415; 71045; 80048; 80069; 80202; 82040; 82962; 83036; 83735; 84145; 85025; 85610; 87635; 93005; 93925; 96365; 96375; G0378; J0696; J3370; J3480; J0360; J3475; J7030; J7040; J7050; U0003

== ENCOUNTER 2020-05-10 10:32 | Emergency (ER) | payer MEDICARE ==
[~2020-05-10] VITALS: Ht 177.8 cm; Wt 63.1 kg
[~2020-05-10 10:32] MED LIST changes: +ATOR-2 PO; +CETI10TA32 PO; +HYDR25TA6 PO; +LIDOCAINE 4% PATCH; +SERT50TA28 PO
[2020-05-10] MEDS ORDERED: SODIUM CHLORIDE FLUSH 10ML SYR IVF ONE (11:00)
[2020-05-10] MEDS ORDERED: PLEASE ENTER HEIGHT AND WEIGHT MC SCH (11:00)
[2020-05-10] MEDS ORDERED: CLINDAMYCIN PMX 900MG/50ML 50 ML IVPB ONE (11:00)
[2020-05-10] MEDS ORDERED: SODIUM CHLORIDE 0.9% 1,000ML IVBOLUS ONE (11:00)
--- NOTE | 2020-05-10 11:14 | NUR ---
SONIDO BRITO FROM [facility], PT WITH C/O BLE WOUNDS TO LOWER LEGS DURATION OF TIME UNKNOW, PT WITH POSSIBLE LOW INR PER HOME HEALTH RN. WOUNDS UNDRESSED TO BLE, FOUL SMELLING PURULENT DRAINAGE NOTED. ERP AWARE. PT TO BP, CONT PULSE OX. DELAY IN CARE, PIV ATTEMPT X2 UNSUCCESSFUL. ANOTHER RN TO ATTEMPT
[2020-05-10 11:21] LABS: BASOPHILS % (AUTO) 1 % (0-1); EOSINOPHILS % (AUTO) 1 % (1-7); LYMPHOCYTES % (AUTO) 16 % (22-44); MEAN CORPUSCULAR HEMOGLOBIN 28.1 pg (27.0-34.8); MEAN CORPUSCULAR HGB CONC 32.8 g/dL (32.4-35.8); MONOCYTES % (AUTO) 10 % (2-9); NEUTROPHILS % (AUTO) 73 % (42-75); PLATELET COUNT 274 x10^3/uL (130-400); RED BLOOD COUNT 4.21 x10^6/uL (3.82-5.3); RED CELL DISTRIBUTION WIDTH 17.5 % (9.6-15.2)
[2020-05-10 11:23] LABS: HCT (SEDRATE) 36.2 % (34.6-47.8); MD NO
[2020-05-10] MEDS ORDERED: CLINDAMYCIN PMX 900MG/50ML 0 ML ONE (11:23)
[2020-05-10 11:29] LABS: ALANINE AMINOTRANSFERASE 40 U/L (12-78); ANION GAP 4 mmol/L (5-15); CALCIUM 8.3 mg/dL (8.5-10.1); CHLORIDE 105 mmol/L (98-107)
[2020-05-10 11:36] LABS: ALKALINE PHOSPHATASE 85 U/L (45-117); BILIRUBIN,TOTAL 0.7 mg/dL (0.2-1.0); CREATININE 1.42 mg/dL (0.55-1.02); TOTAL PROTEIN 7.2 g/dL (6.4-8.2)
--- NOTE | 2020-05-10 11:37 | NUR ---
DELAY IN CARE, 2ND RN UNABLE TO OBTAIN PIV. TRAUMA RN TO ATTEMPT
--- NOTE | 2020-05-10 12:02 | NUR ---
REPORT TO KATHIE ANAND
[2020-05-10 12:13] LABS: INTERNATIONAL NORMALIZED RATIO 1.99 (0.93-1.1); PROTHROMBIN TIME 20.9 Seconds (9.6-11.5)
--- NOTE | 2020-05-10 12:47 | NUR ---
PATIENT CLEANED OF INCONTINENCE, LINEN AND GOWN CHANGED. PATIENT REMINDED THAT SHE SHOULD CALL IF SHE NEEDS TO USE THE BATHROOM. RETURNED APPROPRIATE INFORMATION POST TEACHING. VSS, NAD, CALL HAMMOND WITHIN REACH, WILL CONTINUE TO MONITOR.
--- NOTE | 2020-05-10 14:08 | NUR ---
PATIENT CLEANED OF INCONTINENCE, PLACED ON DRY LINEN WITH EXTRA PAD. VSS, NAD, CALL HAMMOND WITHIN REACH, WILL CONTINUE TO MONITOR
--- NOTE | 2020-05-10 14:30 | NUR ---
PATIENT ASSISTED WITH BED ROBIN, VOIDED 450 ML CLEAR YELLOW URINE.
--- NOTE | 2020-05-10 14:45 | NUR ---
PATIENT CLEANED OF INCONTINENCE, PLACED ON DRY LINEN AND EXTRA PAD. REPOSITIONED, VSS, ,NAD, CALL HAMMOND WITHIN REACH. WILL CONTINUE TO MONITOR.
--- NOTE | 2020-05-10 15:57 | NUR ---
PATIENT ASSISTED TO BED ROBIN, VOIDED 500 ML CLEAR YELLOW URINE.
--- NOTE | 2020-05-10 16:12 | NUR ---
PATIENT ASSISTED TO BED ROBIN, VOIDED 300ML CLEAR YELLOW URINE. VSS, NAD, CALL HAMMOND WITHIN REACH WILL CONTINUE TO MONITOR.
[2020-05-10 16:49] VITALS: BP 136/70
== END 2020-05-10 17:05 | disposition home or self-care (01) ==
LOC: ED 10:51
DX: E11.622 Type 2 diabetes mellitus with other skin ulcer (principal); L97.919 Non-pressure chronic ulcer of unspecified part of right lower leg with unspecified severity; L97.929 Non-pressure chronic ulcer of unspecified part of left lower leg with unspecified severity; I10 Essential (primary) hypertension; I48.91 Unspecified atrial fibrillation; I25.10 Atherosclerotic heart disease of native coronary artery without angina pectoris; E78.5 Hyperlipidemia, unspecified; Z87.891 Personal history of nicotine dependence
CPT/HCPCS: 36415; 73590; 80053; 83605; 84145; 85025; 85610; 85651; 86140; 87040; 96360; 99285; J7030

== ENCOUNTER 2020-05-24 09:58 | Inpatient (IN) | payer MEDICARE ==
[~2020-05-24] VITALS: Ht 165.1 cm; Wt 76.7 kg
--- NOTE | 2020-05-24 10:12 | NUR ---
PT BIB EMS FOR [facility]. PT STATES SHE TRTIPPED AND FELL AT [facility]. PT CO OF LEFT HIP PAIN WELL GALE. PT TAKES COUMADIN. PT RESTING IN [facility]. CONNECTED TO MONITORING EQUIPMENT.
[2020-05-24] MEDS ORDERED: SODIUM CHLORIDE 0.9% 1,000 ML IV ONE (10:30)
[2020-05-24] MEDS ORDERED: SODIUM CHLORIDE FLUSH 10ML SYR IVF ONE (10:30)
[2020-05-24] MEDS ORDERED: FENTANYL PF 100 MCG/2ML IVPush PRN (10:30)
[2020-05-24] MEDS ORDERED: FENTANYL PF 100 MCG/2ML ONE (10:32)
--- NOTE | 2020-05-24 10:38 | NUR ---
PT MEDICATED PER MAR
--- NOTE | 2020-05-24 10:48 | NUR ---
REPORT FROM ASHLEY ANAND.
--- NOTE | 2020-05-24 11:00 | NUR ---
PT IN CT.
[2020-05-24 11:03] LABS: BASOPHILS % (AUTO) 0 % (0-1); EOSINOPHILS % (AUTO) 0 % (1-7); LYMPHOCYTES % (AUTO) 9 % (22-44); MEAN CORPUSCULAR HEMOGLOBIN 28.1 pg (27.0-34.8); MEAN CORPUSCULAR HGB CONC 32.5 g/dL (32.4-35.8); MEAN PLATELET VOLUME 7.7 fL (7.4-10.4); MONOCYTES % (AUTO) 6 % (2-9); NEUTROPHILS % (AUTO) 85 % (42-75); PLATELET COUNT 264 x10^3/uL (130-400); RED BLOOD COUNT 4.11 x10^6/uL (3.82-5.3); RED CELL DISTRIBUTION WIDTH 17.9 % (9.6-15.2)
[2020-05-24 11:05] LABS: ALANINE AMINOTRANSFERASE 48 U/L (12-78); ALBUMIN 3.1 g/dL (3.4-5.0); ANION GAP 4 mmol/L (5-15); CALCIUM 8.5 mg/dL (8.5-10.1); CHLORIDE 104 mmol/L (98-107)
[2020-05-24 11:08] LABS: ALKALINE PHOSPHATASE 84 U/L (45-117); BILIRUBIN,TOTAL 0.5 mg/dL (0.2-1.0); TOTAL PROTEIN 7.2 g/dL (6.4-8.2)
[2020-05-24 11:12] LABS: MD NO
--- NOTE | 2020-05-24 11:30 | NUR ---
BACK FROM CT. PT SLEEPING IN NAD, EVEN AND UNLABORED RESPIRATIONS. VSS. FALL PRECAUTIONS IN PLACE.
[2020-05-24] MEDS ORDERED: NS + 40MEQ KCL 500 ML IV SCH (12:00)
[2020-05-24] MEDS ORDERED: ONDANSETRON ODT 4 MG PO PRN (12:30)
[2020-05-24] MEDS ORDERED: BUTALB/APAP/CAFFEINE 50MG/325MG/40MG PO PRN ×2 (12:30)
[2020-05-24] MEDS ORDERED: ONDANSETRON 2MG/ML, 2ML IVPush PRN (12:30)
[2020-05-24] MEDS ORDERED: LABETALOL 5MG/ML, 20ML IVPush PRN (12:30)
[2020-05-24] MEDS ORDERED: ENALAPRILAT 1.25 MG/ML, 2ML IVPush PRN (12:30)
[2020-05-24] MEDS ORDERED: GUAIFENESIN/DM 200-20MG, 10ML UDC PO PRN (12:30)
[2020-05-24] MEDS ORDERED: POTASSIUM CHLORIDE 40 MEQ in SODIUM CHLORIDE 0.9% 500 ML IV ONE (13:00)
--- NOTE | 2020-05-24 13:20 | NUR ---
REPORT TO AMELIA ANAND.
[2020-05-24 13:50] VITALS: BP 164/82
[2020-05-24] MEDS: HYDROcodone/APAP 5/325 TABLET PO PRN ×2 (14:04→21:38)
[2020-05-24 15:11] LABS: MICROSCOPIC NOT IND
[2020-05-24 19:23] VITALS: BP 168/81
[2020-05-24] MEDS: BACLOFEN 10 MG TABLET PO PRN (21:38)
[2020-05-24] MEDS: SENNA/DOCUSATE TABLET PO SCH (21:38)
[2020-05-24] MEDS: MELATONIN 5 MG TABLET PO SCH (21:39)
[2020-05-25 01:10] VITALS: BP 144/77
[2020-05-25] MEDS: HYDROmorphone 2 MG/ML, 1ML IVPush PRN (04:15)
[2020-05-25 06:09] LABS: BASOPHILS % (AUTO) 0 % (0-1); EOSINOPHILS % (AUTO) 1 % (1-7); LYMPHOCYTES % (AUTO) 10 % (22-44); MEAN CORPUSCULAR HEMOGLOBIN 27.9 pg (27.0-34.8); MEAN CORPUSCULAR HGB CONC 32.4 g/dL (32.4-35.8); MEAN PLATELET VOLUME 7.8 fL (7.4-10.4); MONOCYTES % (AUTO) 9 % (2-9); NEUTROPHILS % (AUTO) 79 % (42-75); PLATELET COUNT 233 x10^3/uL (130-400); RED BLOOD COUNT 4.06 x10^6/uL (3.82-5.3); RED CELL DISTRIBUTION WIDTH 18.3 % (9.6-15.2)
[2020-05-25 06:15] LABS: MD NO
[2020-05-25 06:19] VITALS: BP 160/90
[2020-05-25 06:26] LABS: CHLORIDE 104 mmol/L (98-107)
[2020-05-25] MEDS: SENNA/DOCUSATE TABLET PO SCH (07:31)
[2020-05-25 08:34] LABS: ALBUMIN 2.9 g/dL (3.4-5.0); ANION GAP 4 mmol/L (5-15); CALCIUM 8.5 mg/dL (8.5-10.1)
[2020-05-25 08:37] LABS: ALANINE AMINOTRANSFERASE 39 U/L (12-78); ALKALINE PHOSPHATASE 78 U/L (45-117); BILIRUBIN,TOTAL 0.9 mg/dL (0.2-1.0); CREATININE 0.91 mg/dL (0.55-1.02); TOTAL PROTEIN 6.5 g/dL (6.4-8.2)
[2020-05-25] MEDS ORDERED: FENTANYL PF 250 MCG/5ML ONE (12:08)
[2020-05-25] MEDS ORDERED: ONDANSETRON 2MG/ML, 2ML ONE (12:09)
[2020-05-25] MEDS ORDERED: GLYCOPYRROLATE 0.2MG/1ML, 5ML ONE (12:09)
[2020-05-25] MEDS ORDERED: PROPOFOL 10 MG/ML, 20ML ONE (12:09)
[2020-05-25] MEDS ORDERED: ROCURONIUM 10MG/ML,5ML ONE (12:09)
[2020-05-25] MEDS ORDERED: NEOSTIGMINE 1 MG/ML, 10ML ONE (12:09)
[2020-05-25] MEDS ORDERED: CEFAZOLIN 1,000 MG ONE (12:09)
[2020-05-25] MEDS ORDERED: CHLORHEXIDINE 15 ML UDC MM ONE (12:30)
[2020-05-25] MEDS ORDERED: CHLORHEXIDINE 15 ML UDC ONE (12:34)
[2020-05-25] MEDS ORDERED: POTASSIUM CHLORIDE 20 MEQ in SODIUM CHLORIDE 0.9% 250 ML IV ONE (13:30)
[2020-05-25] MEDS ORDERED: ENOXAPARIN 60 MG/0.6 ML SQ ONE (14:00)
[2020-05-25] MEDS: POTASSIUM CHLORIDE 20 MEQ TAB.ER.PRT PO SCH (17:00)
[2020-05-25] MEDS: HYDROcodone/APAP 5/325 TABLET PO PRN (17:25)
[2020-05-25 19:10] VITALS: BP 125/73
[2020-05-25] MEDS: MELATONIN 5 MG TABLET PO SCH (20:55)
[2020-05-26 00:06] VITALS: BP 150/88
[2020-05-26] MEDS: HYDROcodone/APAP 5/325 TABLET PO PRN (01:42)
[2020-05-26 06:29] LABS: BASOPHILS % (AUTO) 1 % (0-1); EOSINOPHILS % (AUTO) 3 % (1-7); LYMPHOCYTES % (AUTO) 15 % (22-44); MD NO; MEAN CORPUSCULAR HGB CONC 32.7 g/dL (32.4-35.8); MEAN PLATELET VOLUME 7.9 fL (7.4-10.4); MONOCYTES % (AUTO) 8 % (2-9); NEUTROPHILS % (AUTO) 73 % (42-75); PLATELET COUNT 216 x10^3/uL (130-400); RED BLOOD COUNT 4.14 x10^6/uL (3.82-5.3); RED CELL DISTRIBUTION WIDTH 17.8 % (9.6-15.2)
[2020-05-26 06:39] LABS: ALBUMIN 2.5 g/dL (3.4-5.0); ANION GAP 5 mmol/L (5-15); CALCIUM 8.3 mg/dL (8.5-10.1); CHLORIDE 104 mmol/L (98-107); CREATININE 0.84 mg/dL (0.55-1.02)
[2020-05-26] MEDS: POTASSIUM CHLORIDE 20 MEQ TAB.ER.PRT PO SCH ×2 (07:42→17:00)
[2020-05-26] MEDS: SENNA/DOCUSATE TABLET PO SCH (07:43)
[2020-05-26 08:17] VITALS: BP 149/86
[2020-05-26] MEDS ORDERED: POTASSIUM CHLORIDE 20 MEQ in SODIUM CHLORIDE 0.9% 250 ML IV ONE ×2 (09:00→11:30)
[2020-05-26] MEDS: HYDROmorphone 2 MG/ML, 1ML IVPush PRN ×3 (11:20→17:40)
[2020-05-26] MEDS ORDERED: NEOSPORIN OINT, 15GM ONE (13:36)
[2020-05-26] MEDS ORDERED: CHLORHEXIDINE 15 ML UDC ONE (14:04)
[2020-05-26] MEDS ORDERED: FENTANYL PF 250 MCG/5ML ONE (14:11)
[2020-05-26] MEDS ORDERED: DEXAMETHASONE 4 MG/ML, 1ML ONE (14:56)
[2020-05-26] MEDS ORDERED: ONDANSETRON 2MG/ML, 2ML ONE (14:56)
[2020-05-26] MEDS ORDERED: ROCURONIUM 10MG/ML,5ML ONE (14:56)
[2020-05-26] MEDS ORDERED: PROPOFOL 10 MG/ML, 20ML ONE (14:56)
[2020-05-26] MEDS ORDERED: CEFAZOLIN 1,000 MG ONE (14:56)
[2020-05-26] MEDS ORDERED: METOPROLOL 1 MG/ML, 5ML ONE (14:56)
[2020-05-26] MEDS ORDERED: DILTIAZEM 5 MG/ML, 5ML ONE ×2 (15:04→15:43)
[2020-05-26] MEDS ORDERED: LABETALOL 5MG/ML, 20ML IV PRN (16:00)
[2020-05-26] MEDS ORDERED: OXYcodone 5 MG/5 ML ORAL.SOL UDC PO PRN (16:00)
[2020-05-26] MEDS ORDERED: PROMETHAZINE 25 MG/ML, 1ML IV PRN (16:00)
[2020-05-26] MEDS ORDERED: hydrALAzine 20 MG/ML, 1ML IV PRN (16:00)
[2020-05-26] MEDS ORDERED: HALOPERIDOL 5 MG/ML IV PRN (16:00)
[2020-05-26] MEDS ORDERED: ALBUTEROL SULFATE 2.5 MG/3 ML NPPB PRN (16:00)
[2020-05-26] MEDS ORDERED: DILTIAZEM 125 MG in SODIUM CHLORIDE 0.9% 100 ML IV PRN (16:30)
[2020-05-26] MEDS ORDERED: FENTANYL PF 100 MCG/2ML ONE (16:55)
[2020-05-26] MEDS: FENTANYL PF 100 MCG/2ML IV PRN ×3 (16:56→17:06)
[2020-05-26] MEDS ORDERED: HYDROmorphone 1 MG/ML, 1ML INJ ONE (17:17)
[2020-05-26 19:18] VITALS: BP 137/82
[2020-05-26] MEDS ORDERED: ENOXAPARIN 40 MG/0.4 ML SQ SCH (20:00)
[2020-05-26] MEDS: MELATONIN 5 MG TABLET PO SCH (21:00)
[2020-05-26] MEDS: CEFAZOLIN PMX 1GM/50ML 50 ML IVPB SCH (22:55)
[2020-05-27 00:27] VITALS: BP 133/83
[2020-05-27] MEDS: HYDROcodone/APAP 5/325 TABLET PO PRN ×3 (00:49→15:28)
[2020-05-27 03:43] VITALS: BP 121/80
[2020-05-27] MEDS: HYDROmorphone 2 MG/ML, 1ML IVPush PRN (04:21)
[2020-05-27 05:47] LABS: BASOPHILS % (AUTO) 0 % (0-1); CHLORIDE 104 mmol/L (98-107); EOSINOPHILS % (AUTO) 1 % (1-7); LYMPHOCYTES % (AUTO) 8 % (22-44); MEAN CORPUSCULAR HEMOGLOBIN 28.4 pg (27.0-34.8); MONOCYTES % (AUTO) 8 % (2-9); NEUTROPHILS % (AUTO) 83 % (42-75); PLATELET COUNT 209 x10^3/uL (130-400); RED BLOOD COUNT 3.69 x10^6/uL (3.82-5.3); RED CELL DISTRIBUTION WIDTH 17.8 % (9.6-15.2)
[2020-05-27 05:52] LABS: ALBUMIN 2.2 g/dL (3.4-5.0); ANION GAP 3 mmol/L (5-15); CREATININE 0.85 mg/dL (0.55-1.02)
[2020-05-27 05:58] LABS: MD NO
[2020-05-27] MEDS: CEFAZOLIN PMX 1GM/50ML 50 ML IVPB SCH (06:18)
[2020-05-27] MEDS: ENOXAPARIN 40 MG/0.4 ML SQ SCH (06:19)
[2020-05-27 07:46] VITALS: BP 120/64
[2020-05-27] MEDS: SENNA/DOCUSATE TABLET PO SCH (08:22)
[2020-05-27] MEDS: POTASSIUM CHLORIDE 20 MEQ TAB.ER.PRT PO SCH ×2 (08:22→16:57)
[2020-05-27] MEDS: MAGNESIUM OXIDE 400 MG TABLET PO SCH (08:22)
[2020-05-27] MEDS: BACLOFEN 10 MG TABLET PO PRN (12:09)
[2020-05-27 13:04] VITALS: BP 121/70
[2020-05-27 13:46] LABS: INTERNATIONAL NORMALIZED RATIO 1.09 (0.93-1.1); PROTHROMBIN TIME 11.5 Seconds (9.6-11.5)
[2020-05-27] MEDS: METOPROLOL TARTRATE 25 MG TAB PO SCH (17:16)
[2020-05-27] MEDS ORDERED: WARFARIN 3 MG TABLET PO-COUM SCH (18:00)
[2020-05-27 20:44] VITALS: BP 112/71
[2020-05-27] MEDS: ATORVASTATIN 20 MG TABLET PO SCH (20:58)
[2020-05-27] MEDS: MELATONIN 5 MG TABLET PO SCH (20:58)
[2020-05-28 01:59] VITALS: BP 115/79
[2020-05-28] MEDS: LEVOTHYROXINE 112 MCG TABLET PO SCH (06:37)
[2020-05-28] MEDS: ENOXAPARIN 40 MG/0.4 ML SQ SCH (06:37)
[2020-05-28 06:42] VITALS: BP 142/87
[2020-05-28] MEDS: METOPROLOL TARTRATE 25 MG TAB PO SCH ×2 (06:42→17:14)
[2020-05-28] MEDS: SENNA/DOCUSATE TABLET PO SCH (08:13)
[2020-05-28] MEDS: MAGNESIUM OXIDE 400 MG TABLET PO SCH (08:13)
[2020-05-28] MEDS: SERTRALINE 50MG TABLET PO SCH (08:13)
[2020-05-28] MEDS: AMIODARONE 200 MG TABLET PO SCH (08:13)
[2020-05-28] MEDS: HYDROCHLOROTHIAZIDE 25 MG TABLET PO SCH (08:13)
[2020-05-28] MEDS: POTASSIUM CHLORIDE 20 MEQ TAB.ER.PRT PO SCH ×2 (08:13→16:36)
[2020-05-28] MEDS: VALSARTAN 80 MG TABLET PO SCH (08:16)
[2020-05-28] MEDS: APIXABAN 2.5 MG TABLET PO SCH ×2 (08:27→20:24)
[2020-05-28] MEDS: BACLOFEN 10 MG TABLET PO PRN ×2 (08:28→20:44)
[2020-05-28] MEDS ORDERED: APIX2.5T PO (13:17)
[2020-05-28 14:50] VITALS: BP 113/78
[2020-05-28] MEDS: ACETAMINOPHEN 325 MG TABLET PO PRN (20:23)
[2020-05-28] MEDS: ATORVASTATIN 20 MG TABLET PO SCH (20:24)
[2020-05-28] MEDS: MELATONIN 5 MG TABLET PO SCH (20:24)
[2020-05-28 20:25] VITALS: BP 131/81
[2020-05-28] MEDS: HYDROcodone/APAP 5/325 TABLET PO PRN (20:44)
[2020-05-29 01:28] VITALS: BP 143/81
[2020-05-29 05:24] VITALS: BP 137/76
[2020-05-29] MEDS: METOPROLOL TARTRATE 25 MG TAB PO SCH ×2 (05:25→17:13)
[2020-05-29] MEDS: ACETAMINOPHEN 325 MG TABLET PO PRN (05:25)
[2020-05-29] MEDS: LEVOTHYROXINE 112 MCG TABLET PO SCH (05:26)
[2020-05-29] MEDS: BACLOFEN 10 MG TABLET PO PRN (05:26)
[2020-05-29 08:14] VITALS: BP 144/82
[2020-05-29] MEDS: AMIODARONE 200 MG TABLET PO SCH (08:57)
[2020-05-29] MEDS: HYDROcodone/APAP 5/325 TABLET PO PRN ×2 (08:57→17:13)
[2020-05-29] MEDS: POTASSIUM CHLORIDE 20 MEQ TAB.ER.PRT PO SCH ×2 (08:57→17:14)
[2020-05-29] MEDS: SERTRALINE 50MG TABLET PO SCH (08:57)
[2020-05-29] MEDS: APIXABAN 2.5 MG TABLET PO SCH ×2 (08:57→20:52)
[2020-05-29] MEDS: HYDROCHLOROTHIAZIDE 25 MG TABLET PO SCH (08:57)
[2020-05-29] MEDS: MAGNESIUM OXIDE 400 MG TABLET PO SCH (08:57)
[2020-05-29] MEDS: VALSARTAN 80 MG TABLET PO SCH (08:57)
[2020-05-29] MEDS: SENNA/DOCUSATE TABLET PO SCH (08:58)
[2020-05-29 13:00] VITALS: BP 130/91
[2020-05-29 17:33] VITALS: BP 128/86
[2020-05-29 20:25] VITALS: BP 116/71
[2020-05-29] MEDS: MELATONIN 5 MG TABLET PO SCH (20:52)
[2020-05-29] MEDS: ATORVASTATIN 20 MG TABLET PO SCH (20:52)
[2020-05-30 01:53] VITALS: BP 141/76
[2020-05-30 05:17] LABS: BASOPHILS % (AUTO) 1 % (0-1); EOSINOPHILS % (AUTO) 3 % (1-7); LYMPHOCYTES % (AUTO) 15 % (22-44); MEAN CORPUSCULAR HGB CONC 33.2 g/dL (32.4-35.8); MEAN PLATELET VOLUME 8.2 fL (7.4-10.4); MONOCYTES % (AUTO) 10 % (2-9); NEUTROPHILS % (AUTO) 71 % (42-75); PLATELET COUNT 267 x10^3/uL (130-400); RED BLOOD COUNT 3.53 x10^6/uL (3.82-5.3); RED CELL DISTRIBUTION WIDTH 17.6 % (9.6-15.2)
[2020-05-30 05:28] LABS: ANION GAP 3 mmol/L (5-15); CALCIUM 8.3 mg/dL (8.5-10.1); CHLORIDE 102 mmol/L (98-107)
[2020-05-30 05:29] LABS: CREATININE 0.77 mg/dL (0.55-1.02); MD NO
[2020-05-30] MEDS: LEVOTHYROXINE 112 MCG TABLET PO SCH (05:44)
[2020-05-30] MEDS: METOPROLOL TARTRATE 25 MG TAB PO SCH ×2 (05:45→17:49)
[2020-05-30 07:30] VITALS: BP 134/78
[2020-05-30] MEDS: APIXABAN 2.5 MG TABLET PO SCH ×2 (08:17→20:41)
[2020-05-30] MEDS: VALSARTAN 80 MG TABLET PO SCH (08:17)
[2020-05-30] MEDS: SERTRALINE 50MG TABLET PO SCH (08:17)
[2020-05-30] MEDS: HYDROCHLOROTHIAZIDE 25 MG TABLET PO SCH (08:17)
[2020-05-30] MEDS: ACETAMINOPHEN 325 MG TABLET PO PRN (08:17)
[2020-05-30] MEDS: SENNA/DOCUSATE TABLET PO SCH (08:17)
[2020-05-30] MEDS: POTASSIUM CHLORIDE 20 MEQ TAB.ER.PRT PO SCH ×2 (08:18→17:49)
[2020-05-30] MEDS: MAGNESIUM OXIDE 400 MG TABLET PO SCH (08:18)
[2020-05-30] MEDS: AMIODARONE 200 MG TABLET PO SCH (08:18)
[2020-05-30 13:46] VITALS: BP 120/76
[2020-05-30 17:49] VITALS: BP 132/80
[2020-05-30 19:03] VITALS: BP 134/80
[2020-05-30] MEDS: MELATONIN 5 MG TABLET PO SCH (20:41)
[2020-05-30] MEDS: ATORVASTATIN 20 MG TABLET PO SCH (20:42)
[2020-05-31 01:40] VITALS: BP 149/84
[2020-05-31] MEDS: ACETAMINOPHEN 325 MG TABLET PO PRN (04:08)
[2020-05-31 06:12] LABS: BASOPHILS % (AUTO) 1 % (0-1); EOSINOPHILS % (AUTO) 3 % (1-7); LYMPHOCYTES % (AUTO) 17 % (22-44); MEAN CORPUSCULAR HEMOGLOBIN 28.5 pg (27.0-34.8); MEAN CORPUSCULAR HGB CONC 33.5 g/dL (32.4-35.8); MEAN PLATELET VOLUME 8.1 fL (7.4-10.4); MONOCYTES % (AUTO) 12 % (2-9); NEUTROPHILS % (AUTO) 69 % (42-75); PLATELET COUNT 313 x10^3/uL (130-400); RED BLOOD COUNT 3.49 x10^6/uL (3.82-5.3); RED CELL DISTRIBUTION WIDTH 17.4 % (9.6-15.2)
[2020-05-31 06:14] LABS: MD NO
[2020-05-31] MEDS: LEVOTHYROXINE 112 MCG TABLET PO SCH (06:26)
[2020-05-31] MEDS: METOPROLOL TARTRATE 25 MG TAB PO SCH ×2 (06:26→17:14)
[2020-05-31] MEDS: HYDROCHLOROTHIAZIDE 25 MG TABLET PO SCH (07:30)
[2020-05-31] MEDS: APIXABAN 2.5 MG TABLET PO SCH ×2 (07:30→21:04)
[2020-05-31] MEDS: SERTRALINE 50MG TABLET PO SCH (07:30)
[2020-05-31] MEDS: POTASSIUM CHLORIDE 20 MEQ TAB.ER.PRT PO SCH ×2 (07:30→17:14)
[2020-05-31] MEDS: MAGNESIUM OXIDE 400 MG TABLET PO SCH (07:30)
[2020-05-31] MEDS: VALSARTAN 80 MG TABLET PO SCH (07:30)
[2020-05-31] MEDS: AMIODARONE 200 MG TABLET PO SCH (07:30)
[2020-05-31] MEDS: SENNA/DOCUSATE TABLET PO SCH (07:30)
[2020-05-31 07:55] VITALS: BP 126/73
[2020-05-31 13:55] VITALS: BP 117/76
[2020-05-31 18:48] VITALS: BP 128/77
[2020-05-31] MEDS: MELATONIN 5 MG TABLET PO SCH (21:04)
[2020-05-31] MEDS: ATORVASTATIN 20 MG TABLET PO SCH (21:04)
[2020-05-31] MEDS: HYDROcodone/APAP 5/325 TABLET PO PRN (21:07)
[2020-06-01 00:55] VITALS: BP 128/74
[2020-06-01] MEDS: METOPROLOL TARTRATE 25 MG TAB PO SCH (05:49)
[2020-06-01] MEDS: LEVOTHYROXINE 112 MCG TABLET PO SCH (05:49)
[2020-06-01 07:24] VITALS: BP 143/93
[2020-06-01] MEDS: POTASSIUM CHLORIDE 20 MEQ TAB.ER.PRT PO SCH (07:49)
[2020-06-01] MEDS: MAGNESIUM OXIDE 400 MG TABLET PO SCH (07:49)
[2020-06-01] MEDS: SERTRALINE 50MG TABLET PO SCH (07:49)
[2020-06-01] MEDS: AMIODARONE 200 MG TABLET PO SCH (07:49)
[2020-06-01] MEDS: APIXABAN 2.5 MG TABLET PO SCH (07:49)
[2020-06-01] MEDS: VALSARTAN 80 MG TABLET PO SCH (07:49)
[2020-06-01] MEDS: SENNA/DOCUSATE TABLET PO SCH (07:50)
[2020-06-01] MEDS: HYDROCHLOROTHIAZIDE 25 MG TABLET PO SCH (07:50)
== END 2020-06-01 14:45 | disposition short-term general hospital (02) | DRG 521 ==
LOC: ED 10:42 → 4NE 13:40
PROVIDERS: ADMIT Family Medicine; ATTEND Hospitalist
PROC: 0SRS0J9 Replacement of Left Hip Joint, Femoral Surface with Synthetic Substitute, Cemented, Open Approach (ICD-10-PCS; principal; 2020-05-26 14:15)
DX: S72.092A Other fracture of head and neck of left femur, initial encounter for closed fracture (principal); N17.0 Acute kidney failure with tubular necrosis; I48.20 Chronic atrial fibrillation, unspecified; I12.9 Hypertensive chronic kidney disease with stage 1 through stage 4 chronic kidney disease, or unspecified chronic kidney disease; D64.9 Anemia, unspecified; E03.9 Hypothyroidism, unspecified; E11.22 Type 2 diabetes mellitus with diabetic chronic kidney disease; E11.65 Type 2 diabetes mellitus with hyperglycemia; E78.5 Hyperlipidemia, unspecified; E87.6 Hypokalemia; F02.80 Dementia in other diseases classified elsewhere, unspecified severity, without behavioral disturbance, psychotic disturbance, mood disturbance, and anxiety; G30.9 Alzheimer's disease, unspecified; Z20.822 Contact with and (suspected) exposure to COVID-19; W01.0XXA Fall on same level from slipping, tripping and stumbling without subsequent striking against object, initial encounter; J44.9 Chronic obstructive pulmonary disease, unspecified; M85.80 Other specified disorders of bone density and structure, unspecified site; E11.42 Type 2 diabetes mellitus with diabetic polyneuropathy; H35.30 Unspecified macular degeneration; N18.9 Chronic kidney disease, unspecified; Z53.9 Procedure and treatment not carried out, unspecified reason; Z79.01 Long term (current) use of anticoagulants; Z85.3 Personal history of malignant neoplasm of breast; Z90.12 Acquired absence of left breast and nipple; Z88.0 Allergy status to penicillin; Z88.2 Allergy status to sulfonamides; Z79.899 Other long term (current) drug therapy; Y93.89 Activity, other specified; Y92.89 Other specified places as the place of occurrence of the external cause; Y99.8 Other external cause status
CPT/HCPCS: 36415; 70450; 80047; 80048; 80053; 80069; 81003; 82962; 83735; 84132; 85025; 85610; 87635; 93005; 96374; 99285; C1713; G0378; J0690; J1100; J1170; J1650; J2405; J2704; J2710; J3010; J3480; C1762; C1776; J7030; J7040; J7050